=== PATIENT | male | born 1955 | race Caucasian/White ===

== ENCOUNTER → 2018-07-15 11:43 | Outpatient (CLI) | payer BC, SELFPAY ==
[2018-07-15 13:07] LABS: CREATININE 1.11 mg/dL (0.70-1.30); Glucose 108 mg/dL (70-100); Potassium 4.3 mmol/L (3.5-5.1)
[2018-07-15 15:51] LABS: Cholesterol 215 mg/dL (50-200); HDL Cholesterol 55 mg/dL (40-60); LDL CHOLESTEROL 144 mg/dL (<100); Triglyceride 95 mg/dL (30-150)
[2018-07-18 11:24] LABS: PSA, Screening 0.4 ng/ml (0-4.5)
[2018-07-18 11:45] LABS: Hepatitis C Ab w Rflx HCV PCR Negative (NEGAT)
== END ==
PROVIDERS: PCP Family Medicine; Visit Provider Family Medicine
DX: I10 Essential (primary) hypertension (principal); E11.9 Type 2 diabetes mellitus without complications; Z13.220 Encounter for screening for lipoid disorders; Z12.5 Encounter for screening for malignant neoplasm of prostate; Z11.59 Encounter for screening for other viral diseases
CPT/HCPCS: 36415; 80061; 82947; 83721; 84153; 86803; 82565; 84132

== ENCOUNTER 2019-07-28 02:43 | Outpatient (CLI) | payer BC, SELFPAY ==
[2019-07-28 12:48] LABS: Hemoglobin A1C 6.3 % (4.5-6.2)
[2019-07-28 14:55] LABS: CREATININE 1.05 mg/dL (0.70-1.30); Calculated LDL 136 mg/dL; Cholesterol 205 mg/dL (50-200); HDL Cholesterol 56 mg/dL (40-60); Potassium 4.5 mmol/L (3.5-5.1); Triglyceride 66 mg/dL (30-150)
== END 2019-07-28 03:03 ==
PROVIDERS: PCP Family Medicine; Visit Provider Family Medicine
DX: I10 Essential (primary) hypertension (principal); E74.39 Other disorders of intestinal carbohydrate absorption
CPT/HCPCS: 36415; 80061; 82565; 83036; 84132

== ENCOUNTER 2020-07-26 10:09 | Outpatient (CLI) | payer BC, SELFPAY ==
[2020-07-26 13:37] LABS: ALT 33 U/L (16-63); AST 22 U/L (15-37); Albumin 3.7 g/dL (3.4-5.0); Alkaline Phosphatase 76 U/L (46-116); Bilirubin, Direct 0.19 mg/dL (0.00-0.20); Bilirubin, Total 0.7 mg/dL (0.2-1.0); CREATININE 1.19 mg/dL (0.70-1.30); Potassium 4.4 mmol/L (3.5-5.1); Total Protein 7.3 g/dL (6.4-8.2)
[2020-07-26 13:44] LABS: Hemoglobin A1C 6.3 % (<5.7)
[2020-07-26 14:44] LABS: Calculated LDL 143 mg/dL (<100); Cholesterol 217 mg/dL (<200); HDL Cholesterol 57 mg/dL (40-60); Triglyceride 89 mg/dL (<150)
== END 2020-07-26 10:29 ==
PROVIDERS: PCP Family Medicine; Visit Provider Family Medicine
DX: E78.5 Hyperlipidemia, unspecified (principal); I10 Essential (primary) hypertension; R73.9 Hyperglycemia, unspecified; G72.89 Other specified myopathies
CPT/HCPCS: 36415; 80061; 80076; 82565; 83036; 84132

== ENCOUNTER 2021-08-08 02:10 | Outpatient (CLI) | payer BC, SELFPAY ==
[2021-08-08 12:32] LABS: Hemoglobin A1C 6.3 % (<5.7)
[2021-08-08 12:54] LABS: Calculated LDL 125 mg/dL (<100); Cholesterol 204 mg/dL (<200); HDL Cholesterol 60 mg/dL (40-60); Triglyceride 96 mg/dL (<150)
[2021-08-08 13:09] LABS: Uric Acid 7.3 mg/dL (3.5-7.2)
== END 2021-08-08 02:11 | disposition home or self-care (01) ==
LOC: LOS 02:10
PROVIDERS: PCP Family Medicine; Visit Provider Family Medicine
DX: E11.9 Type 2 diabetes mellitus without complications (principal); E78.5 Hyperlipidemia, unspecified; M10.9 Gout, unspecified
CPT/HCPCS: 36415; 80061; 83036; 84550

== ENCOUNTER → 2022-04-17 13:40 | Outpatient (CLI) | payer BC, SELFPAY ==
--- NOTE | 2022-04-17 14:36 | DI.RAD_ITS ---
Exam(s) XR KNEE LT 3V AP,LAT,SABRA EXAM: XR KNEE LT 3V AP,LAT,SABRA CLINICAL HISTORY: left knee pain M25.562 CHRONIC PAIN G89.29. TECHNIQUE: 2D digital imaging was performed of the left knee. Three images were obtained. AP, late ral and PA tunnel views were obtained. COMPARISON: No exams were available for comparison FINDINGS: BONES: No acute fracture is present. No bony destructive lesion is seen. JOINTS: The knee is normally aligned. No joint effusion is seen. Mild degenerative changes are seen i n the femoral tibial joints with joint space narrowing and periarticular spurring. The findings are most marked in the medial femoral tibial joint. SOFT TISSUE: Atherosclerosis is present. IMPRESSION: Mild osteoarthritis. DATA REPOSITORY: RADIATION DOSE DELIVERED:
== END ==
PROVIDERS: PCP Family Medicine; Visit Provider Family Medicine
DX: M25.562 Pain in left knee (principal); G89.29 Other chronic pain; M17.12 Unilateral primary osteoarthritis, left knee
CPT/HCPCS: 73562

== ENCOUNTER 2022-08-14 01:17 | Outpatient (CLI) | payer BC, SELFPAY ==
[2022-08-14 12:40] LABS: CREATININE 1.2 mg/dL (0.70-1.30); Calculated LDL 114 mg/dL (<100); Cholesterol 196 mg/dL (<200); HDL Cholesterol 67 mg/dL (40-60); Potassium 4.5 mmol/L (3.5-5.1); Triglyceride 78 mg/dL (<150)
[2022-08-14 12:56] LABS: Uric Acid 7.5 mg/dL (3.5-7.2)
[2022-08-14 13:56] LABS: Hemoglobin A1C 6.2 % (<5.7)
== END 2022-08-14 01:18 | disposition home or self-care (01) ==
LOC: LOS 01:17
PROVIDERS: PCP Family Medicine; Visit Provider Family Medicine
DX: I10 Essential (primary) hypertension (principal); R73.9 Hyperglycemia, unspecified; M10.9 Gout, unspecified; E78.5 Hyperlipidemia, unspecified
CPT/HCPCS: 36415; 80061; 82565; 83036; 84132; 84550

== ENCOUNTER 2022-09-30 13:33 | Outpatient (CLI) | payer BC, SELFPAY ==
--- NOTE | 2022-09-30 06:00 | DI.RAD_ITS ---
Exam(s) XR PAIN CLINIC FLUORO JOINT IN EXAM: XR PAIN CLINIC FLUORO JOINT IN CLINICAL HISTORY: Dx: Osteoarthritis of the knee. TECHNIQUE: Fluoroscopy was provided for the referring physician for guidance with performing pain cl inic injection procedure. COMPARISON: No exams were available for comparison FINDINGS: Please see procedure note for details. Fluoro time: 44.9 seconds RADIATION DOSE DELIVERED: osmar Kebede=5.11 mGy
[2022-09-30 13:58] VITALS: BP 164/81; PULSE 71; RESP 20; TEMP 36.7; O2SAT 94
--- NOTE | 2022-09-30 14:53 | PDOC.PAIN ---
Date of service: 09/30/22 Time of Service: 14:53 Pain Clinic Procedure Note Procedure Note Procedure Note: LEFT GENICULAR NERVE BLOCK Date of Service: September 30, 2022 Patient: Henry Limon Provider: Michi Fontaine DO, MPH Pre-operative diagnosis: Knee pain Post-operative diagnosis: Same Pre-procedure pain: VAS= 8/10 COMMENTS: He was evaluated by Dr. Diane and was referred directly for this procedure. Henry Limon has been referred to the [facility] for LEFT genicular nerve block. Henry was interviewed and the medical record reviewed. There were no medical, pharmacologic, radiographic or other structural contraindications to attempting fluoroscopically guided LEFT genicular nerve block. Risks and potential side effects as well as potential benefit of the procedure were reviewed with Henry , and HIS voiced concerns were addressed. After I believed that the patient was completely informed, the printed consent form was signed. Standard time-out procedure was performed. Henry was placed in the supine position on the fluoroscopy table and automated blood pressure cuff and pulse oximeter applied. The skin entry points for approaching LEFT superolateral genicular nerve, the superomedial genicular nerve, the terminal branch of the nerve vastus intermedius and the inferomedial genicular was identified under the most advantageous fluoroscopic view and marked. Following thorough Chlorhexadine preparation of the skin and draping, 1% lidocaine infiltration of the skin entry point and subcutaneous tissues was accomplished using a 1.5 25G needle. Next, the 3.5 25G spinal needle was advanced to os at the location of the specific nerve root using fluoroscopic guidance. Next, 0.5 ml of 0.5% Bupivacaine was injected at each site. The needles were removed without difficulty. Henry's vital signs were stable throughout the procedure and were as recorded in the docflowsheet by the nursing staff. If given, dosages of intravenous drugs for anxiolysis and analgesia were documented in MAR. Follow up plans and appointments were discussed with the Henry . Post procedure instruction was given as documented in nursing documentation and having met discharge criteria, Henry was discharged from the [facility]. COMMENTS: No apparent complications. Post-procedure pain: VAS = 0/10. The patient will keep track of her LEFT knee pain over the next four hours. If Henry has sufficient pain relief, Henry will be a candidate for radiofrequency ablation at the same nerves. Jonny WJ1, Early SJ, Attila JG, Shin JG, Kohler THOMAS, Park PH, Morataya JW. Radiofrequency treatment relieves chronic knee osteoarthritis pain: a double-blind randomized controlled trial. Pain. 2010;152(3):481-7. doi: 10.1016/j.pain.2010.09.029. Deloris S1, Kurtis ON2, Arnol Y3, ?zl?rowena P2, Peter U1, Antione ?m?rl? I. Which one is more effective for the clinical treatment of chronic pain in knee osteoarthritis: radiofrequency neurotomy of the genicular nerves or intra-articular injection? Int J Rheum Dis. 2016 Jul 10. F/U with our office by phone to let us know his 1-4 hour post-procedure pain VAS scores Michi Fontaine DO, MPH [facility]
[2022-09-30 14:57] VITALS: PULSE 77; O2SAT 95
[2022-09-30] MEDS: Omnipaque 240 MG/ML 50 ML BTL IJ (15:02)
[2022-09-30] MEDS: Bupivacaine 0.5% Pres-Free 10 ML VIAL IJ (15:02)
== END 2022-09-30 13:34 | disposition home or self-care (01) ==
LOC: PC 13:33
PROVIDERS: PCP Family Medicine; Visit Provider Preventive Medicine Occupational Medicine
DX: M25.562 Pain in left knee (principal)
CPT/HCPCS: 64454; 77002; Q9967

== ENCOUNTER 2022-11-02 13:07 | Emergency (ER) | payer OTHER, BC, SELFPAY ==
[2022-11-02 13:12] VITALS: BP 154/82; PULSE 87; RESP 18; TEMP 36.6; O2SAT 96
--- NOTE | 2022-11-02 13:15 | DI.RAD_ITS ---
Exam(s) XR TIB/FIB RT EXAM: XR TIB/FIB RT CLINICAL HISTORY: pain, injury. TECHNIQUE: 2D digital imaging was performed. Two views. COMPARISON: No exams were available for comparison FINDINGS: BONES: There is a comminuted mildly displaced fracture of the mid fibula. There is a fracture seen e xtending transversely through the medial malleolus with a few millimeters of separation. There is wi dening of the medial ankle mortise.. No bony destructive lesion is seen. Visualized portion of knee and ankle joints are unremarkable. SOFT TISSUE: A posterior splint is in place. There is significant soft tissue edema. IMPRESSION: Mid fibular fracture. Medial malleolar fracture with mortise disruption. DATA REPOSITORY: RADIATION DOSE DELIVERED:
[2022-11-02 13:44] LABS: Abs Immature Grans 0.04 10^3/uL (0.0-0.06); Absolute Basophil Count 0.02 10^3/uL (0.0-0.2); Absolute Eosinophil Count 0.19 10^3/uL (0.0-0.7); Absolute Lymphocyte Count 0.77 10^3/uL (1.2-3.4); Absolute Monocyte Count 0.21 10^3/uL (0.1-0.8); Absolute Neutrophil Count 4.97 10^3/uL (1.2-6.7); Basophils % 0.3; Eosinophils % 3.1; HCT 44.4 % (40.0-50.0); HGB 14.3 g/dL (13.5-17.5); Immature Grans % 0.6; Lymphocytes % 12.4; MCHC 32.2 % (32.0-36.0); MCV 96 fL (80-95); Monocytes % 3.4; Neutrophils % 80.2; Platelet Count 272 10^3/uL (130-400); RBC 4.62 10^6/uL (4.36-5.78); RDW 13.1 % (11.8-14.1); RDW-SD 46.5 fL
[2022-11-02 13:47] LABS: Source Nasal/Nares
[2022-11-02 14:01] LABS: ALT 28 U/L (16-63); AST 20 U/L (15-37); Albumin 3.1 g/dL (3.4-5.0); Alkaline Phosphatase 65 U/L (46-116); Anion Gap 8.2 mmol/L (3-11); BUN 13 mg/dL (7-18); Bilirubin, Total 0.5 mg/dL (0.2-1.0); CO2 25.8 mmol/L (21.0-32.0); CREATININE 1.1 mg/dL (0.70-1.30); Calcium 8.1 mg/dL (8.5-10.1); Chloride 104 mmol/L (98-107); Estimated GFR 74.04 (mL/min/1.73m2); Glucose 164 mg/dL (74-106); Potassium 4.5 mmol/L (3.5-5.1); Sodium 138 mmol/L (136-145); Total Protein 7.4 g/dL (6.4-8.2)
[2022-11-02 14:28] LABS: COVID-19 PCR Negative (Negative)
--- NOTE | 2022-11-02 15:47 | W.ED.GENAD ---
Discharge Plan Disposition Patient Disposition: Home Condition: Stable Discharge Details Clinical Impression: Fracture of right tibia and fibula, Abrasion of right leg Primary Care Provider: Les Carvajal ED Provider: Leon Sharif Home Meds and New Rx's Prescriptions: Continued Spiriva Respimat 2.5 mcg/actuation mist 2 inh inhalation QAM Qty: 4 2RF amlodipine 10 mg tablet 10 mg PO DAILY Qty: 90 3RF albuterol sulfate 90 mcg/actuation HFA aerosol inhaler 2 inh inhalation Q6H PRN (Reason: shortness of breath or wheezing) Qty: 18 4RF lisinopril 30 mg tablet 30 mg PO DAILY Qty: 90 3RF Rx Instructions: increased dose/ take one tablet daily acetaminophen [Acetaminophen Extra Strength] 500 MG tablet 1,000 mg PO Q6H PRN PRN (Reason: Pain) Qty: 100 0RF Rx Instructions: max 3 x day No Action metoprolol succinate 25 mg tablet extended release 24 hr 25 mg PO DAILY Qty: 90 3RF naproxen 250 mg tablet 250 - 500 mg PO BID PRNQty: 40 0RF Rx Instructions: take with a meal oxycodone 5 mg tablet 5 - 10 mg PO Q4H MDD 30 mg PRN (Reason: moderate to severe pain) Qty: 18 0RF folic acid 1 mg Tablet 1 mg PO QAM Qty: 30 0RF hydroxyzine HCl 25 mg Tablet 25 mg PO TID PRN PRNQty: 30 0RF thiamine mononitrate (vit B1) [Vitamin B-1 (mononitrate)] 100 mg Tablet 100 mg PO QAM Qty: 30 0RF Discharge Instructions Instructions: Oxycodone, Rapid Release (By mouth), Leg Fracture (ED), Abrasion (ED) Additional Instructions: Keep splint intact and use crutches. No weightbearing on right leg. Please take ibuprofen over the counter. Take 600mg by mouth every 6 hours as needed for pain. Please take acetaminophen (tylenol) as prescribed for pain. Take oxycodone only for severe pain at does not respond to ibuprofen and Tylenol. Please follow-up with orthopedics. Call tomorrow to schedule appointment. Return to the emergency department immediately for any worsening or new concerning symptoms. Referrals: [facility] [Provider Group] Les Carvajal MD [Primary Care Provider] - Discharge Data Discharge Date/Time-TO BE ENTERED AT DEPARTURE: 11/02/22 17:37 Medical Decision Making 67yo m here with right leg injury after right leg was pinned between a heavy log and machinery. Patient is neurovascular intact distally. He has some mild swelling of the mid to distal lower extremity. Dilaudid 1 mg IV given for pain. X-ray of the tib-fib was interpreted by radiology: Displaced midshaft fibular fracture with distal tibial fracture, some talar displacement. I consulted Dr. Diane, discussed ED presentation course, he evaluated the patient and recommends posterior slab splint with reduction of the talar dislocation. Pain did initially improve and then a repeat dose of Dilaudid and Toradol was given for return of discomfort. Talus was reduced and posterior splint applied. Post reduction x-ray obtained. Alignment improved. Patient to be discharged nonweightbearing with crutches. Patient to follow-up with Dr. Diane. Sign Out No HPI General Mode of arrival: EMS. Date/Time Provider Initiated Documentation: 11/02/22 13:17. Limitations to Documentation: no limitations. Information obtained by: patient and EMS. HPI Narrative: 67-year-old male presents with chief complaint of patient notes he leg pain. Patient notes pinned his leg between a log and global account manager machine. Leg was pinned for approximately 30 seconds and removed with assistance from others. He notes he had to bear weight on the leg and it felt unstable. He has had pain since his injury which occurred just prior to arrival. Pain is moderate to severe. Worse with any attempted movement of the ankle and with ambulation. No associated numbness or tingling. No other injury. Related Data Home Medications Medication Instructions Recorded Confirmed acetaminophen 500 mg tablet 1,000 mg PO Q6H PRN PRN Pain #100 10/05/16 11/17/22 (Acetaminophen Extra Strength) tabs lisinopril 30 mg tablet 30 mg PO DAILY #90 tab-caps 06/15/22 11/17/22 tiotropium bromide 2.5 2 inh inhalation QAM #4 grams 08/12/22 11/17/22 mcg/actuation mist for inhalation (Spiriva Respimat) albuterol sulfate 90 mcg/actuation 2 inh inhalation Q6H PRN shortness 10/30/22 11/17/22 aerosol inhaler of breath or wheezing #18 grams amlodipine 10 mg tablet 10 mg PO DAILY #90 tabs 10/30/22 11/17/22 naproxen 250 mg tablet 250 - 500 mg PO BID PRN #40 tabs 11/05/22 11/17/22 oxycodone 5 mg tablet 5 - 10 mg PO Q4H PRN moderate to 11/05/22 11/17/22 severe pain #18 tabs folic acid 1 mg tablet 1 mg PO QAM #30 tabs 11/09/22 11/17/22 hydroxyzine HCl 25 mg tablet 25 mg PO TID PRN PRN #30 tabs 11/09/22 11/17/22 thiamine mononitrate (vit B1) 100 100 mg PO QAM #30 tabs 11/09/22 11/17/22 mg tablet (Vitamin B-1 (mononitrate)) metoprolol succinate 25 mg 25 mg PO DAILY #90 tabs 11/10/22 11/17/22 tablet,extended release 24 hr Previous Rx's Medication Instructions Recorded acetaminophen 500 mg tablet 1,000 mg PO Q6H PRN PRN Pain #100 10/05/16 (Acetaminophen Extra Strength) tabs lisinopril 30 mg tablet 30 mg PO DAILY #90 tab-caps 06/15/22 tiotropium bromide 2.5 2 inh inhalation QAM #4 grams 08/12/22 mcg/actuation mist for inhalation (Spiriva Respimat) albuterol sulfate 90 mcg/actuation 2 inh inhalation Q6H PRN shortness 10/30/22 aerosol inhaler of breath or wheezing #18 grams amlodipine 10 mg tablet 10 mg PO DAILY #90 tabs 10/30/22 naproxen 250 mg tablet 250 - 500 mg PO BID PRN #40 tabs 11/05/22 oxycodone 5 mg tablet 5 - 10 mg PO Q4H PRN moderate to 11/05/22 severe pain #18 tabs folic acid 1 mg tablet 1 mg PO QAM #30 tabs 11/09/22 hydroxyzine HCl 25 mg tablet 25 mg PO TID PRN PRN #30 tabs 11/09/22 thiamine mononitrate (vit B1) 100 100 mg PO QAM #30 tabs 11/09/22 mg tablet (Vitamin B-1 (mononitrate)) metoprolol succinate 25 mg 25 mg PO DAILY #90 tabs 11/10/22 tablet,extended release 24 hr Allergies Allergy/AdvReac Type Severity Reaction Status Date / Time No Known Allergies Allergy Verified 11/17/22 15:14 General Stated Complaint: Orthopedic JESSEE: 3 Review of Systems Cardiovascular Cardiovascular: Denies chest pain and Denies dyspnea Respiratory Respiratory: Denies dyspnea Gastrointestinal Gastrointestinal: Denies abdominal pain Musculoskeletal Musculoskeletal: Reports as per HPI and Denies tingling Neurologic Neurologic: Denies tingling PFSH All Active Problems (Updated 11/10/22 @ 00:05 by KENTRELL KO) Displaced trimalleolar fracture of right ankle (Acute 11/02/22) Abrasion of right leg (Acute) Former cigarette smoker (Chronic) ~80 pack/yr hx. Annual LDCT COPD (chronic obstructive pulmonary disease) (Chronic) Osteoarthritis of left knee (Acute) Morbid obesity with BMI of 45.0-49.9, adult (Acute) Poor dentition (Chronic 06/25/17) Chronic pain of left knee (Chronic 06/25/17) Well adult (Chronic) check labs wt loss encouraged shingrix colon screening encouraged Alcohol use (Chronic) 3-4 beers / night Hypertension (Chronic) Medical History (Updated 11/10/22 @ 00:05 by KENTRELL KO) Gout attack Hematuria, gross Rosacea (06/06/14) Family History Mother No problems noted. Father , age 80 Heart disease Sister No problems noted. Maternal Grandfather , age 85 Heart disease Paternal Grandfather , age 62 Heart disease Maternal Grandmother , 66 Heart disease Stroke Paternal Grandmother , 90 Cancer Sister No problems noted. Sister No problems noted. Brother No problems noted. Brother , 59 Colon cancer Son No problems noted. Son No problems noted. Social History Smoking/Tobacco Use Status: Former Tobacco Use tobacco type: cigarettes Quit Date: 11/29/09 Tobacco: How many years used: 30 Second Hand Exposure: Yes Smoking risk assessment performed?: Yes Alcohol Intake: current Alcohol Intake frequency: a few times a week Alcohol type: beer Drug use: Never Substance use type: does not use Caregiver/Support person: No Household members: children Housing: house Do you need help understanding health information?: Never Pets and animals: No Sexually active: No Do you think of yourself as: straight/heterosexual Current gender identity: male What is your relationship status?: How often do you talk on the phone with friends or family?: three or more times per week How often do you get together with friends or relatives?: three or more times per week How often do you attend presybeterian or anglican services?: decline to answer Do you belong to any clubs or organized social groups?: no Panel score (0-1 are the most socially isolated patients): 1 What type of physical activity do you participate in: walking Duration: 60-90 minutes/day Frequency: daily Cathie/Lutheran: No preference Special cathie needs: No Seatbelt use: sometimes Helmet use: No Drive 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 Do you feel safe at home: Yes Do you feel safe in your relationship?: Yes Exam Const General: cooperative HENMT Head: atraumatic Mouth: moist mucous membranes Resp Auscultation: clear to auscultation bilaterally, no rales, no rhonchi and no wheezes Cardio Rate: regular rate and not tachycardic Rhythm: regular rhythm GI Palpation: soft, not firm, no guarding, no masses, not rigid and nontender Skin General skin exam: no rashes or lesions noted Neuro General: patient alert, patient awake and tone normal Extrem General: no edema Right lower extremity: lower leg Details: other (Swelling mid to distal lower leg, tender mid lateral lower leg, superficial abrasion posterior calf); no lacerations, ankle Details: tenderness Location: of the medial malleolus and swelling and foot Details: vascular exam Details: dorsalis pedis pulse present and posterior tibial pulse present and motor-sensory exam Details: light-touch normal Course Vital Signs Vital signs: Vital Signs Temperature 36.6 C 11/02/22 13:12 Pulse 87 11/02/22 13:12 Respiratory Rate 18 11/02/22 13:12 Blood Pressure 154/82 H 11/02/22 13:12 Pulse Oximetry 96 11/02/22 13:12 Temperature 36.6 C 11/02/22 13:12 Temperature Source Tympanic 11/02/22 13:12 Pulse 87 11/02/22 13:12 Respiratory Rate 18 11/02/22 13:12 Respiratory Effort 11/02/22 13:16 Blood Pressure 154/82 H 11/02/22 13:12 Blood Pressure Position Supine 11/02/22 13:12 Pulse Oximetry 96 11/02/22 13:12 Oxygen Delivery Method Room Air 11/02/22 13:12 Oxygen Flow Rate 0 11/02/22 13:12 Pain Level 5 11/02/22 13:12 Lab/Test Results Lab/Test Results: Laboratory Tests Range/Units 11/02/22 11/02/22 11/02/22 13:35 13:35 13:35 WBC (4.4-10.8) 10^3/uL 6.20 RBC (4.36-5.78) 10^6/uL 4.62 Hgb (13.5-17.5) g/dL 14.3 Hct (40.0-50.0) % 44.4 MCV (80-95) fL 96 H MCH (27.0-33.0) pg 31.0 MCHC (32.0-36.0) % 32.2 RDW (11.8-14.1) % 13.1 Plt Count (130-400) 10^3/uL 272 MPV (8.0-11.0) fL 9.0 Immature Gran % 0.6 Neutrophils % 80.2 Lymphocytes % 12.4 Monocytes % 3.4 Eosinophils % 3.1 Basophils % 0.3 Nucleated RBC % (0.0-0.3) % 0.0 Absolute Neutrophils (1.2-6.7) 10^3/uL 4.97 Absolute Lymphocytes (1.2-3.4) 10^3/uL 0.77 L Absolute Monocytes (0.1-0.8) 10^3/uL 0.21 Absolute Eosinophils (0.0-0.7) 10^3/uL 0.19 Absolute Basophils (0.0-0.2) 10^3/uL 0.02 Sodium (136-145) mmol/L 138 Potassium (3.5-5.1) mmol/L 4.5 Chloride (98-107) mmol/L 104 Carbon Dioxide (21.0-32.0) mmol/L 25.8 Anion Gap (3-11) mmol/L 8.2 BUN (7-18) mg/dL 13 Creatinine (0.70-1.30) mg/dL 1.1 Est GFR (CKD-EPI 2020) (mL/min/1.73m2) 74.04 Glucose (74-106) mg/dL 164 H Calcium (8.5-10.1) mg/dL 8.1 L Total Bilirubin (0.2-1.0) mg/dL 0.5 AST (15-37) U/L 20 ALT (16-63) U/L 28 Alkaline Phosphatase (46-116) U/L 65 Total Protein (6.4-8.2) g/dL 7.4 Albumin (3.4-5.0) g/dL 3.1 L COVID-19 Source SARS-CoV-2 (PCR) (Negative) Patient ABO/Rh A Positive Antibody Screen NEGATIVE Range/Units 11/02/22 13:41 WBC (4.4-10.8) 10^3/uL RBC (4.36-5.78) 10^6/uL Hgb (13.5-17.5) g/dL Hct (40.0-50.0) % MCV (80-95) fL MCH (27.0-33.0) pg MCHC (32.0-36.0) % RDW (11.8-14.1) % Plt Count (130-400) 10^3/uL MPV (8.0-11.0) fL Immature Gran % Neutrophils % Lymphocytes % Monocytes % Eosinophils % Basophils % Nucleated RBC % (0.0-0.3) % Absolute Neutrophils (1.2-6.7) 10^3/uL Absolute Lymphocytes (1.2-3.4) 10^3/uL Absolute Monocytes (0.1-0.8) 10^3/uL Absolute Eosinophils (0.0-0.7) 10^3/uL Absolute Basophils (0.0-0.2) 10^3/uL Sodium (136-145) mmol/L Potassium (3.5-5.1) mmol/L Chloride (98-107) mmol/L Carbon Dioxide (21.0-32.0) mmol/L Anion Gap (3-11) mmol/L BUN (7-18) mg/dL Creatinine (0.70-1.30) mg/dL Est GFR (CKD-EPI 2020) (mL/min/1.73m2) Glucose (74-106) mg/dL Calcium (8.5-10.1) mg/dL Total Bilirubin (0.2-1.0) mg/dL AST (15-37) U/L ALT (16-63) U/L Alkaline Phosphatase (46-116) U/L Total Protein (6.4-8.2) g/dL Albumin (3.4-5.0) g/dL COVID-19 Source Nasal/Nares SARS-CoV-2 (PCR) (Negative) Negative Patient ABO/Rh Antibody Screen PAWSS Have you Been Recently Intoxicated or Drunk Within the Last 30 days?: No Have you Ever Experienced Previous Episodes of Alcohol Withdrawal?: No Have you ever Experienced Withdrawal Seizures?: No Have you ever Experienced Delirium Tremens(DT)s?: No Have you ever undergone Alcohol Rehabilitation Treatment (i.e, inpt ot outpatient treatment programs)?: No Have you ever Experienced Blackouts?: No Have you ever Combined Alcohol with other Downers within the last 90 days?: No Have you ever Combined Alcohol with any other Substance of Abuse during the last 90 days?: No Positive Blood Alcohol level on Presentation? [PCS.BAL]: No Evidence of Increased Autonomic Activity (i.e. HR>120, tremor, sweating, agitation, nausea)?: No Result: 0
--- NOTE | 2022-11-02 16:48 | DI.RAD_ITS ---
Exam(s) XR ANKLE RT COMPLETE EXAM: XR ANKLE RT COMPLETE CLINICAL HISTORY: fracture, post reduction. TECHNIQUE: 2D digital imaging was performed of the right ankle. Three images were obtained. AP, la teral and oblique views were obtained. COMPARISON: CR XR TIB/FIB RT from 11/02/2022 FINDINGS: BONES: The acute comminuted fracture of the mid right fibula is partially seen on the edge of the carly m. It is better appreciated on the x-ray of the leg from earlier in the day. There is also seen an acute fracture through the medial malleolus. There has been no change in alignment of the fracture. There is widening of the medial ankle mortise which is unchanged. No bony destructive lesion is see n. The small plantar calcaneal spur. JOINTS: There is widening of the ankle mortise medially. SOFT TISSUE: There is soft tissue swelling of the ankle. The patient's ankle is in a splint. IMPRESSION: Stable alignment of the medial malleolar fracture and widening of the ankle mortise. DATA REPOSITORY: RADIATION DOSE DELIVERED:
--- NOTE | 2022-11-02 17:45 | DI.VRAD_ITS ---
PROCEDURE INFORMATION: Exam: XR Right Ankle Exam date and time: 11/02/2022 4:30 PM Age: 67 years old Clinical indication: Other: Fracture post reduction TECHNIQUE: Imaging protocol: Radiologic exam of the Right ankle. Views: 3 or more views. COMPARISON: CR XR TIB/FIB RT 11/02/2022 2:25 PM FINDINGS: Tubes, catheters and devices: Status post splint placement. Bones/joints: Displaced fracture of the medial malleolus. Widening of the medial ankle mortise consistent with disruption. Partially visualized comminuted fracture of the fibula. Fracture alignment appears unchanged. Soft tissues: Soft tissue swelling and edema. IMPRESSION: Status post splint placement with unchanged alignment of displaced medial malleolar fracture and ankle mortise widening. Dictated and Authenticated by: Christiano Levine MD. Ordering:ALETHA Quintero MD
--- NOTE | 2022-11-03 12:26 | W.ORTHOCONSU ---
Date of service: 11/02/22 Time of Service: 15:40 History of Present Illness History of Present Illness Chief Complaint: Right Leg Pain Narrative: Henry is a 67-year-old active male who was working in the [employer] when a log rolled up onto his right leg and pinned him between the log and a log splitter. He had immediate pain and deformity. He is brought in by EMS. He had pain and swelling about the right leg. X-rays were performed and revealed a midshaft fibula fracture with ankle fracture as well, posterior and medial malleolus. These represent a Maisonneuve equivalent. He denies any numbness or tingling. He does have pain within the leg. He denies head trauma. He has had issues with knee pain in the past. Consults Consult date: 11/02/22 Requesting physician: Leon Sharif Consult Reason Right ANkle Fracture-Subluxation Assessment and Plan Assessment and plan (1) Closed Maisonneuve fracture of right lower extremity: Status: Acute Assessment and plan: Henry is a 67-year-old who has an ankle fracture subluxation, trimalleolar equivalent. There is some swelling about the leg by do not see any signs of compartment syndrome. I have little concern for that given the status of the leg at this point. It is imperative that he keep it elevated. He should be nonweightbearing. Gentle reduction should also be performed this was discussed with Dr. Sharif. He will complete the reduction and placed him into a posterior slab splint. He should keep the leg elevated at home and we will call him for likely surgical fixation in the next 5 to 7 days. Review of Systems All systems reviewed & are unremarkable except as noted in HPI and below PFSH All Active Problems Closed Maisonneuve fracture of right lower extremity (Acute 11/02/22) Abrasion of right leg (Acute) Former cigarette smoker (Chronic) ~80 pack/yr hx. Annual LDCT COPD (chronic obstructive pulmonary disease) (Chronic) Osteoarthritis of left knee (Acute) Morbid obesity with BMI of 45.0-49.9, adult (Acute) Poor dentition (Chronic 06/25/17) Chronic pain of left knee (Chronic 06/25/17) Well adult (Chronic) check labs wt loss encouraged shingrix colon screening encouraged Alcohol use (Chronic) 3-4 beers / night Hypertension (Chronic) Medical History Gout attack Hematuria, gross Rosacea (06/06/14) Family History Mother No problems noted. Father , age 80 Heart disease Sister No problems noted. Maternal Grandfather , age 85 Heart disease Paternal Grandfather , age 62 Heart disease Maternal Grandmother , 66 Heart disease Stroke Paternal Grandmother , 90 Cancer Sister No problems noted. Sister No problems noted. Brother No problems noted. Brother , 59 Colon cancer Son No problems noted. Son No problems noted. Social History Smoking/Tobacco Use Status: Former Tobacco Use tobacco type: cigarettes Quit Date: 11/29/09 Tobacco: How many years used: 30 Second Hand Exposure: Yes Smoking risk assessment performed?: Yes Alcohol Intake: current Alcohol Intake frequency: a few times a week Alcohol type: beer Drug use: Never Substance use type: does not use Caregiver/Support person: No Household members: children Housing: house Do you need help understanding health information?: Never Pets and animals: No Sexually active: No Do you think of yourself as: straight/heterosexual Current gender identity: male What is your relationship status?: How often do you talk on the phone with friends or family?: three or more times per week How often do you get together with friends or relatives?: three or more times per week How often do you attend religious or hoahaoism services?: decline to answer Do you belong to any clubs or organized social groups?: no Panel score (0-1 are the most socially isolated patients): 1 What type of physical activity do you participate in: walking Duration: 60-90 minutes/day Frequency: daily Cathie/Holiness: No preference Special cathie needs: No Seatbelt use: sometimes Helmet use: No Drive intox or ride w/intox skidder driver: No Do you feel safe at home: Yes Do you feel safe in your relationship?: Yes Exam Narrative Exam Narrative: Evaluation in the hospital stretcher shows he is in no acute distress. Alert and x3. Head is normocephalic and atraumatic. Evaluation of the right lower extremity shows notable swelling about the midportion of the leg down to the ankle. However, the skin has wrinkles. There is no defect in the skin. There is pain to palpation about the ankle and the fibula. Sensation intact light touch over the deep and superficial peroneal nerve and tibial nerve. Palpable DP PT pulse. Passive flexion extension of the great toe does not increase any pain. Results Last Vital Signs Temp 36.6 C 11/02/22 13:12 Pulse 87 11/02/22 13:12 Resp 18 11/02/22 13:12 BP 154/82 H 11/02/22 13:12 Pulse Ox 96 11/02/22 13:12 Labs Result diagrams: 11/02/22 13:35 11/02/22 13:35 Labs: Laboratory Results - last 24 hr 11/02/22 11/02/22 11/02/22 13:35 13:35 13:35 WBC 6.20 RBC 4.62 Hgb 14.3 Hct 44.4 MCV 96 H MCH 31.0 MCHC 32.2 RDW 13.1 Plt Count 272 MPV 9.0 Immature Gran % 0.6 Neutrophils % 80.2 Lymphocytes % 12.4 Monocytes % 3.4 Eosinophils % 3.1 Basophils % 0.3 Nucleated RBC % 0.0 Absolute Neutrophils 4.97 Absolute Lymphocytes 0.77 L Absolute Monocytes 0.21 Absolute Eosinophils 0.19 Absolute Basophils 0.02 Sodium 138 Potassium 4.5 Chloride 104 Carbon Dioxide 25.8 Anion Gap 8.2 BUN 13 Creatinine 1.1 Est GFR (CKD-EPI 2020) 74.04 Glucose 164 H Calcium 8.1 L Total Bilirubin 0.5 AST 20 ALT 28 Alkaline Phosphatase 65 Total Protein 7.4 Albumin 3.1 L COVID-19 Source SARS-CoV-2 (PCR) Patient ABO/Rh A Positive Antibody Screen NEGATIVE 11/02/22 13:41 WBC RBC Hgb Hct MCV MCH MCHC RDW Plt Count MPV Immature Gran % Neutrophils % Lymphocytes % Monocytes % Eosinophils % Basophils % Nucleated RBC % Absolute Neutrophils Absolute Lymphocytes Absolute Monocytes Absolute Eosinophils Absolute Basophils Sodium Potassium Chloride Carbon Dioxide Anion Gap BUN Creatinine Est GFR (CKD-EPI 2020) Glucose Calcium Total Bilirubin AST ALT Alkaline Phosphatase Total Protein Albumin COVID-19 Source Nasal/Nares SARS-CoV-2 (PCR) Negative Patient ABO/Rh Antibody Screen Imaging Imaging Studies: X-ray of the right leg and ankle shows a medial and posterior malleolar fractures as well as a midshaft fibula fracture, representing a Maisonneuve fracture. No fracture the proximal tibia or the knee. No other suspicious lesions.
--- NOTE | 2022-11-07 10:10 | INDS_ITS ---
Date of service: 11/07/22 PT Notes Visit Reasons: Darryl Physical Therapy Inpatient Discharge Summary Date: 11/06/2022 Dates of Service: 11/06/2022 only This is a clinical summary of care provided for the duration of dates listed above. No charge was made in the completion of this documentation. Referring Doctor:? Milo Diane MD PT Orders: PT CONSULT: Protected weight bearing as best as possible with assistive device Precautions: Fall. Standard. Protected weight bearing on R LE. Patient Profile/Admitting Diagnosis:? Henry converts to swing bed level for continued rpost-op rehabilitation prior to discharge to home tentively on Wednesday.? Henry is a 67-year-old male patient who presented to the ED on 11/02/2022 with diagnosis of displaced fracture of the mid shaft of the R fibula with distal tibial fracture with some talar displacement.? On 11/03/2022,? a posterior slab splint was placed for the patient at the ED after a closed reduction of the talar dislocation was made to stabilize the fracture while his Pneumonia cleared.? He is S/P ORIF of R displaced trimallleolar fracture with open treatment syndesmosis disruption on postoperative day 2. PMHX: All Active Problems?(Updated 11/02/22 @ 16:26 by Leon Sharif MD) Fracture of right tibia and fibula (Acute) Abrasion of right leg (Acute) Former cigarette smoker (Chronic) ~80 pack/yr hx. Annual LDCT COPD (chronic obstructive pulmonary disease) (Chronic) Osteoarthritis of left knee (Acute) Morbid obesity with BMI of 45.0-49.9, adult (Acute) Poor dentition (Chronic 06/25/17) Chronic pain of left knee (Chronic 06/25/17) Well adult (Chronic) check labs wt loss encouraged shingrix colon screening encouragedAlcohol use (Chronic) 3-4 beers / night Hypertension (Chronic) Medical History? Gout attack Hematuria, gross Rosacea (06/06/14) Social History/Home Situation: Son lives with patient in a private home with 5-6 steps to enter without rails.? He works for the town of [place].? Equipment Owned/DME: Bilateral axillary crutches Subjective: Confidence level increasing but still with prevailing anxiety over going home.? Agreeable to having home health PT and OT for continued rehab.? Reports 3/10 pain in the R leg after ambulation activity that subsided with rest. Objective: General Observation: Seated on chair.? BRENDA wraps to R LE over fixed R LE.? High BMI.? IV access through R UE. Mental Status: Alert and oriented as to person, place, time, and purpose. Able to pay attention, focus, and respond appropriately. Pain: 3/10 Vital Signs: WNL as closely monitored by nursing staff ROM: Right Lower Extremity: Hip flexion WFL. Hip abduction WFL. Knee flexion WFL. Ankle dorsiflexion NT. Ankle plantarflexion NT. Left Lower Extremity: Hip flexion WFL. Hip abduction WFL. Knee flexion WFL. Ankle dorsiflexion WFL. Ankle plantarflexion WFL. Strength: Right Lower Extremity: R hip 4-/5.? R knee extensors 4-/5. R knee flexors NT. Left Lower Extremity: Hip flexors 5/5. Hip abductors 5/5. Knee flexors 5/5. Knee extensors 5/5. Ankle dorsiflexors 5/5. Ankle plantarflexors 5/5. Bed Mobility/Transfers: Sit to stand with stand by assist using bariatric FWW Stand to sit?with stand by assist using bariatric FWW Bed to reclining chair?with stand by assist using bariatric FWW Gait: 50 feet using bariatric FWW with TDWB to minimal weight bearing on the R LE with report of 3/10 pain in the side of the R leg that subsided with rest.? Step-to gait pattern sometimes but mostly TDWB as patient appears still anxious about putting R feet down.? THERA EX: Gluteal sets x 10 Quadrcieps sets x 10 Seated hip abdcution x 10 Heel slides x 10 Toe wiggles x 10 Balance: Static Sitting: Normal Dynamic Sitting: Normal Static Standing: Poor Dynamic Standing: Poor Special Tests: Mobility Limitations Standardized Measure [facility] 6 clicks Basic Mobility Inpatient Short Form: Raw Score: 20? CMS Score: 36% deficit? ? ? Informed Consent/Education:? Patient was instructed in purpose of PT consult and plan of care. Agreeable to proceed with established PT POC to achieve personal goals. Assessment: Patient to be re-evalauted under swing bed level 1 of care. Patient will benefit best with HH PT/OT at home for training in the home environment.? He is able to cover about the same distance as he would at home using the bariatric FWW.? Alternatively,? he will have a wheelchair that he may use to negotiate the distance from reclining chair to the bathroom if pain becomes an issue at home.? Henry is a 67-year-old male patient who presented to the ED on 11/02/2022 with diagnosis of displaced fracture of the midshaft of the R fibula with distal tibial fracture with some talar displacement.? On 11/03/2022,? a posterior slab splint was placed for the patient at the ED after a closed reduction of the talar dislocation was made to stabilize the fracture while his Pneumonia cleared.? He is S/P ORIF of R displaced trimallleolar fracture with open treatment syndesmosis disruption on postoperative day 2.? Training for pericare and undergarment management pre and post voiding have been done with patient. Patient presents with clinical signs and symptoms consistent with current/admitting diagnoses that have resulted to mobility limitations, gait instability, generalized weakness, and overall ADL decline as demonstrated by the following impairment level findings: 1.? Decreased strength to R leg and foot major muscle groups 2.? Impaired standing balance 3.? Impaired activity tolerance 4.? Limitation of joint range of motion in R LE Impairments are contributing to the following functional limitations: 1.? Decline in bed mobility skills 2.? Decline in transfer skills 3.? Increased completion time for mobility ADL performance Goals: Goals X1 week 1. Sit-Stand from reclining chair independent using bariatric walker NOT MET, CONITNUE UNDER SB 1 LEVEL OF CARE 2. Stand-Sit onto reclining chair independent using bariatric walker NOT MET, CONITNUE UNDER SB 1 LEVEL OF CARE 3. Bed-Chair independent using bariatric walker NOT MET, CONITNUE UNDER SB 1 LEVEL OF CARE 4. Chair-Bed independent using bariatric walker NOT MET, CONITNUE UNDER SB 1 LEVEL OF CARE 5.? Level service ambulation of 50 feet indepedent using bariatric walker NOT MET, CONITNUE UNDER SB 1 LEVEL OF CARE Plan of Care/Treatment Plan: 1-2x/day, 7 days/week x 1 week. Plan of care has been reviewed with the SHOTBLAST EQUIPMENT OPERATOR providing the service under Physical Therapy direction. Initiate Physical Therapy intervention for pain management as needed, strengthening, bed mobility, transfers, gait, stairs, balance training, and use of assistive device. DISCHARGE RECOMMENDATIONS: [] ? Home with no services [] [X] ? Home with services .? HOme when medically cleared by orthopedic surgeon.? Patient will benefit from home health PT services in order to progress mobility level using least restrictive assistive ambulatory device, assess home safety, identify additional equipment needs, and establish a functional maintenance program that will increase ability of patient to remain at home. [] ? Home with outpatient PT [] [] ? SNF for continued rehabilitation [] [] ? [facility] [] [] ? SNF versus LTC based on ability to participate and progress [] [X]? Equipment needs: 1) regular wheelchair to negotiate hallway from reclining chair to bathroom if pain level increases ? 2) bedside commode to maximize toileting independence and reduce fall risk if pain level increases ? 3)? shower chair to maximize independence with bathing tasks while reducing fall risk ? 4) bariatric walker to maixmize mobility independence and reduce fall risk TREATMENT CODE/TIME: NC Thank you for the opportunity to participate in the care of this patient. Leeann Hardy PT, DPT, CLT [facility] [place], [place]
== END 2022-11-02 17:37 | disposition home or self-care (01) ==
PROVIDERS: Emergency Provider Student in an Organized Health Care Education/Training Program; PCP Family Medicine
DX: S82.301A Unspecified fracture of lower end of right tibia, initial encounter for closed fracture (principal); S82.831A Other fracture of upper and lower end of right fibula, initial encounter for closed fracture; S93.04XA Dislocation of right ankle joint, initial encounter; Z20.822 Contact with and (suspected) exposure to COVID-19; W31.89XA Contact with other specified machinery, initial encounter
CPT/HCPCS: 27840; 80053; 86850; 86900; 86901; 87635; 90471; 96374; 96375; 96376; 99284; 73590; 73610; 85025

== ENCOUNTER 2022-11-03 11:53 | Inpatient (IN) | payer OTHER, SELFPAY ==
--- NOTE | 2022-11-03 | DI.RAD_ITS ---
Exam(s) XR CHEST 2V PA LATERAL EXAM: XR CHEST 2V PA LATERAL CLINICAL HISTORY: ongoing cough TECHNIQUE: 2D digital imaging was performed of the chest. Two images were obtained. PA and lateral views were obtained. COMPARISON: No exams were available for comparison FINDINGS: MEDIASTINUM: Normal. HEART: Normal. PULMONARY VASCULATURE: Normal. LUNGS: Clear. PLEURAL SPACE: No pleural effusion or pneumothorax. BONE:Within normal limits for the patient's age. OTHER FINDINGS:Normal. IMPRESSION: No acute pulmonary findings. DATA REPOSITORY: RADIATION DOSE DELIVERED:
--- NOTE | 2022-11-03 | DI.RAD_ITS ---
Exam(s) XR ANKLE RT COMPLETE EXAM: XR ANKLE RT COMPLETE CLINICAL HISTORY: s/p R ankle fracture with repeat fall. TECHNIQUE: 2D digital imaging was performed of the right ankle. Three images were obtained. AP, la teral and oblique views were obtained. COMPARISON: CR,XR XR ANKLE RT COMPLETE from 11/02/2022 FINDINGS: BONES: There is again seen a trimalleolar fracture present. The medial malleolar fracture fragment i s now 4.6 mm laterally displaced. There is been increase in displacement of the posterior malleolar fracture fragment. No bony destructive lesion is seen. The comminuted fracture of the mid fibula is again seen and is grossly unchanged. JOINTS: There is a lateral and posterior dislocation of the talus relative to the distal tibia. The lateral displacement of the talus has slightly progressed since the prior examination. SOFT TISSUE: There is diffuse soft tissue swelling about the ankle, medial greater than lateral. The patient's ankle is in a splint. IMPRESSION: Slight worsening of the alignment of the trimalleolar fracture dislocation of the right ankle. DATA REPOSITORY: RADIATION DOSE DELIVERED:
--- NOTE | 2022-11-03 | DI.RAD_ITS ---
Exam(s) XR TIB/FIB RT EXAM: XR TIB/FIB RT CLINICAL HISTORY: f/u R ankle fracture, repeat fall. TECHNIQUE: 2D digital imaging was performed of the right tibia and fibula. Two images were obtained. AP and lateral views were obtained. COMPARISON: CR XR TIB/FIB RT from 11/02/2022 FINDINGS: BONES: There is again seen a comminuted fracture of the right fibula. There does not appear to be an y significant change in alignment of the fracture components compared to the prior examination. The distal tibia and fibula are included on the x-ray of the ankle. No bony destructive lesion is seen. SOFT TISSUE: Normal. IMPRESSION: Stable right fibular fracture. DATA REPOSITORY: RADIATION DOSE DELIVERED:
[2022-11-03 13:16] VITALS: BP 153/72; PULSE 79; RESP 16; TEMP 36.4; O2SAT 95
[2022-11-03 14:15] VITALS: BP 153/72; PULSE 79; RESP 16; TEMP 36.4; O2SAT 95
--- NOTE | 2022-11-03 14:25 | IN_ITS ---
Date of service: 11/03/22 Time of Service: 15:19 PT Notes Visit Reasons: Right ankle fracture dislocation,failure to thrive Physical Therapy Inpatient Initial Evaluation Date: 11/03/2022 Referring Doctor: Milo Diane MD PT Orders: PT CONSULT: S/P Ortho surgery. R ankle fracture dislocation. To undergo surgery at end of week. TDWB on R LE. Precautions: Fall. Standard. TDWB on R LE. Patient Profile/Admitting Diagnosis: Henry is a 67-year-old male patient who presented to the ED on 11/02/2022 with diagnosis of displaced fracture of the midshaft of the R fibula with distal tibial fracture with some talar displacement. A posterior slab splint was placed for the patient at the ED after a closed reduction of the talar dislocation was made. Patient is to have surgery later this week as soon as Pneumonia resolves per PA Abdoulaye. PMHX: All Active Problems?(Updated 11/02/22 @ 16:26 by Leon Sharif MD) Fracture of right tibia and fibula (Acute) Abrasion of right leg (Acute) Former cigarette smoker (Chronic) ~80 pack/yr hx. Annual LDCT COPD (chronic obstructive pulmonary disease) (Chronic) Osteoarthritis of left knee (Acute) Morbid obesity with BMI of 45.0-49.9, adult (Acute) Poor dentition (Chronic 06/25/17) Chronic pain of left knee (Chronic 06/25/17) Well adult (Chronic) check labs wt loss encouraged shingrix colon screening encouragedAlcohol use (Chronic) 3-4 beers / night Hypertension (Chronic) Medical History? Gout attack Hematuria, gross Rosacea (06/06/14) Social History/Home Situation: Son lives with patient in a private home with 5-6 steps to enter without rails. He works for the town of [place]. Equipment Owned/DME: Bilateral axillary crutches Subjective: Patient states that he can go home directly to his mother's house as her residence is handicap-accessible. He adds that he has a friend who can bring a wheelchair for him for when he goes home as needed to make it easier. States that his pain is considerably decreased from 12/10 at the ED to just 1/10 even with transfers. Objective: General Observation: Supine in bed. BRENDA wraps to R LE over posterior leg splint. High BMI. Mental Status: Alert and oriented as to person, place, time, and purpose. Able to pay attention, focus, and respond appropriately. Pain: 12/08 Vital Signs: WNL as closely monitored by nursing staff ROM: Right Lower Extremity: Hip flexion WFL. Hip abduction WFL. Knee flexion NT. Ankle dorsiflexion NT. Ankle plantarflexion NT. Left Lower Extremity: Hip flexion WFL. Hip abduction WFL. Knee flexion WFL. Ankle dorsiflexion WFL. Ankle plantarflexion WFL. Strength: Right Lower Extremity: NT Left Lower Extremity: Hip flexors 5/5. Hip abductors 5/5. Knee flexors 5/5. Knee extensors 5/5. Ankle dorsiflexors 5/5. Ankle plantarflexors 5/5. Bed Mobility/Transfers: Supine to sit minimal assist to R leg Sit to stand contact guard assist of 2 using bariatric FWW Stand to sit contact guard assist of 2 bariatric FWW Bed to reclining chair contact guard assist of 2 bariatric FWW Gait: Contact guard assist of 2 with patient able to semi hop for 2-3 x using his L LE, R LE bent at the knee/NWB. Balance: Static Sitting: Normal Dynamic Sitting: Normal Static Standing: Poor Dynamic Standing: Poor Special Tests: Mobility Limitations Standardized Measure [facility] AM-PAC 6 clicks Basic Mobility Inpatient Short Form: Raw Score: 11 CMS Score: 72% deficit Informed Consent/Education: Patient was instructed in purpose of PT consult and plan of care. Agreeable to proceed with established PT POC to achieve personal goals. Assessment: Patient has a planned surgery later this week for the fractures he sustained. Treatment focus is ensuring for safe transfers to and from bed using bariatric FWW to allow for positioning changes and be up for meals. Patient presents with clinical signs and symptoms consistent with current/admitting diagnoses that have resulted to mobility limitations, gait instability, generalized weakness, and overall ADL decline as demonstrated by the following impairment level findings: 1. Decreased strength to R leg and foot major muscle groups 2. Impaired sitting/standing balance 3. Impaired activity tolerance 4. Limitation of joint range of motion in R LE Impairments are contributing to the following functional limitations: 1. Decline in bed mobility skills 2. Decline in transfer skills 3. Increased completion time for mobility ADL performance 4. Increased risk for falls 5. Difficulty with managing steps alone safely Patient is assessed as a 75310 moderate complexity based on the following: History: 67-year-old female with past medical history as indicated above Examination: Demonstrable impairment in strength, balance, and mobility level with underlying impairments and functional limitations as exhibited above as well as deficit score of 72% utilizing the [facility] Mobility Inpa tient Short Form Presentation: evolving Decision Makin complexity Goals: Goals X1 week 1. Supine-Sit stand by assist 2. Sit-Supine stand by assist 3. Sit-Stand contact guard assist using bariatric walker 4. Stand-Sit contact guard assist using bariatric walker 5. Bed-Chair contact guard assist using bariatric walker 6. Chair-Bed contact guard assist using bariatric walker Plan of Care/Treatment Plan: 1-2x/day, 7 days/week x 1 week. Plan of care has been reviewed with the [employer] providing the service under Physical Therapy direction. Initiate Physical Therapy intervention for pain management as needed, strengthening, bed mobility, transfers, gait, stairs, balance training, and use of assistive device. DISCHARGE RECOMMENDATIONS: [] Home with no services [] [] Home with services [specify] [] Home with outpatient PT [] [] SNF for continued rehabilitation [] [] [facility] [] [] SNF versus LTC based on ability to participate and progress [] [X] TBD once surgery is done later this week TREATMENT CODE/TIME: 83108 x 30 minutes, 78747 x 10 minutes beginning at 14:25 PM. Thank you for the opportunity to participate in the care of this patient. Leeann Hardy PT, DPT, CLT [facility] [place], [place]
[2022-11-03] MEDS: Amoxicillin 875/Clav. 125 TAB PO (14:28)
[2022-11-03] MEDS: Acetaminophen 500 MG TAB 1000 MG PO ×2 (14:28→19:51)
--- NOTE | 2022-11-03 14:36 | W.PREOPHP ---
Documented by User: GLORIA Bynum 11/03/22 14:45 Assessment and Plan Assessment and plan (1) Closed Maisonneuve fracture of right lower extremity: Status: Acute Assessment and plan: ORIF right ankle. Details of surgery were discussed with patient as well as risks and pertinent anatomy. All questions were answered. Will also discontinue antibiotics unless he worsens including developing a productive cough or fever. History of Present Illness History of Present Illness Chief Complaint: R ankle injury Narrative: Henry is a 67-year-old male who was admitted today due to an ankle injury that he suffered yesterday (11/02/2022) when a log rolled onto his right ankle causing severe pain. He went to the emergency room where he was found to have a maisonneuve fracture of the right ankle. He was placed in a posterior slab splint and discharged home. While at home, he was unable to get up from a chair or ambulate anywhere throughout his house without significant help. He was therefore admitted today with a plan of an ORIF of his right ankle within the next few days. He also has been dealing with a cough for which she was prescribed antibiotics. He has not had a fever with this cough and states that he is significantly better. He did discontinue the antibiotics on his own a few days ago. Review of Systems Constitutional Constitutional: Denies fever(s) ENT Ears, Nose, Mouth, and Throat: Denies dizziness and Denies sore throat Cardiovascular Cardiovascular: Denies chest pain, Denies palpitations and Denies dyspnea Respiratory Respiratory: Denies cough and Denies dyspnea Gastrointestinal Gastrointestinal: Denies abdominal pain, Denies melena, Denies hematochezia, Denies diarrhea, Denies nausea and Denies vomiting Genitourinary Genitourinary: Denies hematuria and Denies dysuria Neurologic Neurologic: Denies dizziness Endocrine Endocrine: Denies palpitations PFSH All Active Problems (Updated 11/03/22 @ 14:44 by GLORIA Bynum) Closed Maisonneuve fracture of right lower extremity (Acute 11/02/22) Abrasion of right leg (Acute) Former cigarette smoker (Chronic) ~80 pack/yr hx. Annual LDCT COPD (chronic obstructive pulmonary disease) (Chronic) Osteoarthritis of left knee (Acute) Morbid obesity with BMI of 45.0-49.9, adult (Acute) Poor dentition (Chronic 06/25/17) Chronic pain of left knee (Chronic 06/25/17) Well adult (Chronic) check labs wt loss encouraged shingrix colon screening encouraged Alcohol use (Chronic) 3-4 beers / night Hypertension (Chronic) Medical History Gout attack Hematuria, gross Rosacea (06/06/14) Family History Mother No problems noted. Father , age 80 Heart disease Sister No problems noted. Maternal Grandfather , age 85 Heart disease Paternal Grandfather , age 62 Heart disease Maternal Grandmother , 66 Heart disease Stroke Paternal Grandmother , 90 Cancer Sister No problems noted. Sister No problems noted. Brother No problems noted. Brother , 59 Colon cancer Son No problems noted. Son No problems noted. Social History Smoking/Tobacco Use Status: Former Tobacco Use tobacco type: cigarettes Quit Date: 11/29/09 Tobacco: How many years used: 30 Second Hand Exposure: Yes Smoking risk assessment performed?: Yes Alcohol Intake: current Alcohol Intake frequency: a few times a week Alcohol type: beer Drug use: Never Substance use type: does not use Caregiver/Support person: No Household members: children Housing: house Do you need help understanding health information?: Never Pets and animals: No Sexually active: No Do you think of yourself as: straight/heterosexual Current gender identity: male What is your relationship status?: How often do you talk on the phone with friends or family?: three or more times per week How often do you get together with friends or relatives?: three or more times per week How often do you attend baptism or christianity services?: decline to answer Do you belong to any clubs or organized social groups?: no Panel score (0-1 are the most socially isolated patients): 1 What type of physical activity do you participate in: walking Duration: 60-90 minutes/day Frequency: daily Cathie/Church: No preference Special cathie needs: No Seatbelt use: sometimes Helmet use: No Drive intox or ride w/intox 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 Do you feel safe at home: Yes Do you feel safe in your relationship?: Yes Meds Allergies and Home Medications Allergies Allergy/AdvReac Type Severity Reaction Status Date / Time No Known Allergies Allergy Verified 10/30/22 14:16 Home Medications Medication Instructions Recorded Confirmed Type acetaminophen 500 mg tablet 1,000 mg PO Q6H PRN PRN Pain #100 10/05/16 11/03/22 Rx (Acetaminophen Extra Strength) tabs lisinopril 30 mg tablet 30 mg PO DAILY #90 tab-caps 06/15/22 11/03/22 Rx metoprolol succinate 25 mg 25 mg PO DAILY #30 tabs 08/12/22 11/03/22 Rx tablet,extended release 24 hr tiotropium bromide 2.5 2 inh inhalation QAM #4 grams 08/12/22 11/03/22 Rx mcg/actuation mist for inhalation (Spiriva Respimat) albuterol sulfate 90 mcg/actuation 2 inh inhalation Q6H PRN shortness 10/30/22 11/03/22 Rx aerosol inhaler of breath or wheezing #18 grams amlodipine 10 mg tablet 10 mg PO DAILY #90 tabs 10/30/22 11/03/22 Rx amoxicillin 875 mg-potassium 1 tab PO Q12H #14 tabs 10/30/22 11/03/22 Rx clavulanate 125 mg tablet azithromycin 250 mg tablet 250 mg PO DAILY 5 days #6 tabs 10/30/22 11/03/22 Rx prednisone 20 mg tablet 40 mg PO DAILY 5 days #10 tabs 10/30/22 11/03/22 Rx Exam Const General: cooperative and no acute distress Orientation: alert and awake [facility] Head: normocephalic and atraumatic Other: soft palate rises symmetrically, no erythema Eyes Conjunctivae: conjunctivae normal Sclera: sclerae normal Resp Effort & Inspection: normal respiratory effort Auscultation: wheezes lower bilaterally Cardio Rate: regular rate Rhythm: regular rhythm Heart Sounds: S1 normal, S2 normal and no murmurs Results Labs Result diagrams: 11/03/22 12:20 Last Vital Signs Temp 97.5 F L 11/03/22 14:15 Pulse 79 11/03/22 14:15 Resp 16 11/03/22 14:15 BP 153/72 H 11/03/22 14:15 Pulse Ox 95 11/03/22 14:15 Documented by User: Milo Diane MD 11/03/22 17:48 Assessment and Plan Assessment and plan (1) Closed Maisonneuve fracture of right lower extremity: Status: Acute Assessment and plan: ORIF right ankle. Details of surgery were discussed with patient as well as risks and pertinent anatomy. All questions were answered. Will also discontinue antibiotics unless he worsens including developing a productive cough or fever. I interviewed and examined the patient with Abdoulaye Huang PA-C. I agree with the documentation as above. The assessment and plan were formulated with my direct involvement. Henry is a 67-year-old who was in the emergency department yesterday after suffering a collision between a log and a log splitter. He suffered a Maisonneuve type fracture with ankle fracture dislocation about the right side. He had reduction performed but was unable to manage nonweightbearing precautions at home. He had a fall and was unable to mobilize on his own at home. Therefore, after receiving this information I advised him to be admitted to the hospital. I admitted to the service for pain control, mobilization physical therapy, strict elevation, and likely surgical fixation in the upcoming few days. Is imperative that the swelling comes down. Unfortunately, his ankle positioning had worsened after he was home and therefore I reduced the ankle on the floor with a new splint. Repeat x-rays after this did show improvement with the positioning of the fracture fragments. It is imperative that he keeps his leg elevated. It would likely have surgery in the next 2 to 3 days, by Dr. Holden. He does have a history of having a cough without fevers and chills. He has been COVID and flu negative. Chest x-ray performed today does not show any signs of pneumonia. He does not have a fever. This point we will continue to treat with his regular medications and avoid any antibiotics. I also have placed a physical therapy consult to start working on his mobilization with a nonweightbearing status which will be the case after the surgery is completed. I did discuss the case with Dr. Holden will be taking over the care of this patient after tomorrow as I am out of town. Milo Diane MD FAAOS FAAHKS PFSH All Active Problems (Updated 11/03/22 @ 14:44 by GLORIA Bynum) Closed Maisonneuve fracture of right lower extremity (Acute 11/02/22) Abrasion of right leg (Acute) Former cigarette smoker (Chronic) ~80 pack/yr hx. Annual LDCT COPD (chronic obstructive pulmonary disease) (Chronic) Osteoarthritis of left knee (Acute) Morbid obesity with BMI of 45.0-49.9, adult (Acute) Poor dentition (Chronic 06/25/17) Chronic pain of left knee (Chronic 06/25/17) Well adult (Chronic) check labs wt loss encouraged shingrix colon screening encouraged Alcohol use (Chronic) 3-4 beers / night Hypertension (Chronic) Medical History Gout attack Hematuria, gross Rosacea (06/06/14) Family History Mother No problems noted. Father , age 80 Heart disease Sister No problems noted. Maternal Grandfather , age 85 Heart disease Paternal Grandfather , age 62 Heart disease Maternal Grandmother , 66 Heart disease Stroke Paternal Grandmother , 90 Cancer Sister No problems noted. Sister No problems noted. Brother No problems noted. Brother , 59 Colon cancer Son No problems noted. Son No problems noted. Social History Smoking/Tobacco Use Status: Former Tobacco Use tobacco type: cigarettes Quit Date: 11/29/09 Tobacco: How many years used: 30 Second Hand Exposure: Yes Smoking risk assessment performed?: Yes Alcohol Intake: current Alcohol Intake frequency: a few times a week Alcohol type: beer Drug use: Never Substance use type: does not use Caregiver/Support person: No Household members: children Housing: house Do you need help understanding health information?: Never Pets and animals: No Sexually active: No Do you think of yourself as: straight/heterosexual Current gender identity: male What is your relationship status?: How often do you talk on the phone with friends or family?: three or more times per week How often do you get together with friends or relatives?: three or more times per week How often do you attend baptism or christianity services?: decline to answer Do you belong to any clubs or organized social groups?: no Panel score (0-1 are the most socially isolated patients): 1 What type of physical activity do you participate in: walking Duration: 60-90 minutes/day Frequency: daily Cathie/Church: No preference Special cathie needs: No Seatbelt use: sometimes Helmet use: No Drive intox or ride w/intox 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 Do you feel safe at home: Yes Do you feel safe in your relationship?: Yes Meds Allergies and Home Medications Allergies Allergy/AdvReac Type Severity Reaction Status Date / Time No Known Allergies Allergy Verified 10/30/22 14:16 Home Medications Medication Instructions Recorded Confirmed Type acetaminophen 500 mg tablet 1,000 mg PO Q6H PRN PRN Pain #100 10/05/16 11/03/22 Rx (Acetaminophen Extra Strength) tabs lisinopril 30 mg tablet 30 mg PO DAILY #90 tab-caps 06/15/22 11/03/22 Rx metoprolol succinate 25 mg 25 mg PO DAILY #30 tabs 08/12/22 11/03/22 Rx tablet,extended release 24 hr tiotropium bromide 2.5 2 inh inhalation QAM #4 grams 08/12/22 11/03/22 Rx mcg/actuation mist for inhalation (Spiriva Respimat) albuterol sulfate 90 mcg/actuation 2 inh inhalation Q6H PRN shortness 10/30/22 11/03/22 Rx aerosol inhaler of breath or wheezing #18 grams amlodipine 10 mg tablet 10 mg PO DAILY #90 tabs 10/30/22 11/03/22 Rx amoxicillin 875 mg-potassium 1 tab PO Q12H #14 tabs 10/30/22 11/03/22 Rx clavulanate 125 mg tablet azithromycin 250 mg tablet 250 mg PO DAILY 5 days #6 tabs 10/30/22 11/03/22 Rx prednisone 20 mg tablet 40 mg PO DAILY 5 days #10 tabs 10/30/22 11/03/22 Rx Results Labs Result diagrams: 11/03/22 12:20
[2022-11-03 15:10] VITALS: BP 136/75; PULSE 87; RESP 19; TEMP 36.9; O2SAT 94
--- NOTE | 2022-11-03 16:34 | DI.RAD_ITS ---
Exam(s) XR ANKLE RT 2V EXAM: XR ANKLE RT 2V CLINICAL HISTORY: s/p manipulation and resplinting. TECHNIQUE: 2D digital imaging was performed of the right ankle. Two images were obtained. AP and l ateral views were obtained. COMPARISON: CR XR ANKLE RT COMPLETE from 11/03/2022 CR XR TIB/FIB RT from 11/03/2022 FINDINGS: BONES: There does not appear to be any significant change in alignment of the right ankle fracture di slocation. No bony destructive lesion is seen. JOINTS: There is persistent widening of the medial ankle joint. SOFT TISSUE: There is diffuse soft tissue swelling. The ankle is in a splint. IMPRESSION: Stable alignment of the right ankle. DATA REPOSITORY: RADIATION DOSE DELIVERED:
[2022-11-03] MEDS: Ketorolac 15 MG/ML VIAL IVP (16:49)
[2022-11-03] MEDS: Normal Saline Flush 10 ML SYR IVP ×2 (16:50→19:51)
[2022-11-03 18:25] VITALS: BP 126/74; PULSE 77; RESP 20; TEMP 36.8; O2SAT 94
[2022-11-03 19:23] LABS: ALT 23 U/L (16-63); AST 21 U/L (15-37); Alkaline Phosphatase 71 U/L (46-116); Anion Gap 8.1 mmol/L (3-11); BUN 20 mg/dL (7-18); Bilirubin, Total 0.6 mg/dL (0.2-1.0); CO2 26.9 mmol/L (21.0-32.0); CREATININE 1.2 mg/dL (0.70-1.30); Calcium 8.5 mg/dL (8.5-10.1); Chloride 103 mmol/L (98-107); Glucose 134 mg/dL (74-106); Hemoglobin A1C 6.3 % (<5.7); Sodium 138 mmol/L (136-145); Total Protein 7.3 g/dL (6.4-8.2)
[2022-11-03 23:32] VITALS: BP 138/80; PULSE 74; RESP 19; TEMP 36.8; O2SAT 93
[2022-11-04] VITALS (12 sets, daily range): BP systolic 129–161; BP diastolic 74–82; PULSE 58–84; RESP 16–21; TEMP 36.3–37.2; O2SAT 88–98; BMI 43.4
[2022-11-04] MEDS: Normal Saline Flush 10 ML SYR IVP ×3 (01:14→21:15)
[2022-11-04] MEDS: LORazepam 1 MG TAB PO/SL (01:14)
[2022-11-04] MEDS: Ketorolac 15 MG/ML VIAL IVP ×2 (01:14→21:15)
[2022-11-04] MEDS: Tiotropium Bromide-Respimat 10 PUFF INH 2 PUFF IH (07:58)
--- NOTE | 2022-11-04 07:58 | W.PM.PROGNOT ---
Date of Service Date of service: 11/04/22 Time of Service: 09:30 Assessment and Plan Assessment and plan (1) Closed Maisonneuve fracture of right lower extremity: Status: Acute Assessment and plan: Henry is a 67-year-old who has a Maisonneuve type fracture of the right lower extremity. The repeat reduction yesterday did improve the positioning. He does have notable swelling of the right leg but it has not gotten significantly worse. There are still some wrinkles. His pain is controlled. His labs were stable. At this point he will likely go for operative fixation of the right ankle tomorrow or Wednesday with Dr. Holden. Dr. Holden will be taken over his care starting tomorrow. Continue with current pain control measures. Nonweightbearing right lower extremity. N.p.o. after midnight. Subjective Subjective Interval history since last seen: No acute issues. Pain has been controlled. Post-reduction x-rays yesterday show improvement with the positioning of the talus. He was able to mobilize over to the chair with minimal assistance. He denies any numbness or tingling. He has not required any pain medication. He denies any persistent cough. No fevers no chills. Exam Narrative Exam Narrative: Sitting up in the chair. No acute distress. Evaluation of the right leg shows some continued swelling about the right leg and ankle but the skin does have some wrinkles and it is compressible. No blisters. No pain with passive great toe extension or flexion. Sensation intact light touch over the deep and superficial peroneal nerve and tibial nerve. Objective Last Vital Signs Temp 36.8 C 11/04/22 07:40 Pulse 82 11/04/22 07:40 Resp 18 11/04/22 07:40 BP 144/81 H 11/04/22 07:40 Pulse Ox 94 11/04/22 07:40 Laboratory Results - last 24 hr 11/03/22 11/03/22 18:55 18:55 Sodium 138 Potassium 4.0 Chloride 103 Carbon Dioxide 26.9 Anion Gap 8.1 BUN 20 H Creatinine 1.2 Est GFR (CKD-EPI 2020) 66.70 Glucose 134 H Hemoglobin A1c 6.3 H Calcium 8.5 Total Bilirubin 0.6 AST 21 ALT 23 Alkaline Phosphatase 71 Total Protein 7.3 Albumin 3.0 L PAWSS Have you Been Recently Intoxicated or Drunk Within the Last 30 days?: No Have you Ever Experienced Previous Episodes of Alcohol Withdrawal?: No Have you ever Experienced Withdrawal Seizures?: No Have you ever Experienced Delirium Tremens(DT)s?: No Have you ever undergone Alcohol Rehabilitation Treatment (i.e, inpt ot outpatient treatment programs)?: No Have you ever Experienced Blackouts?: No Have you ever Combined Alcohol with other Downers within the last 90 days?: No Positive Blood Alcohol level on Presentation? [PCS.BAL]: No Result: 0
[2022-11-04] MEDS: Lisinopril 10 MG TAB 30 MG PO (08:30)
[2022-11-04] MEDS: amLODIPine 10 MG TAB PO (08:31)
[2022-11-04] MEDS: Multivitamin TAB 1 TAB PO (08:31)
[2022-11-04] MEDS: Thiamine 100 MG TAB PO (08:31)
[2022-11-04] MEDS: Folic Acid 1 MG TAB PO (08:31)
[2022-11-04] MEDS: Acetaminophen 500 MG TAB 1000 MG PO ×3 (08:32→21:15)
[2022-11-04] MEDS: Metoprolol CR 25 MG TABCR PO (08:32)
--- NOTE | 2022-11-04 10:30 | INITIAL_ITS ---
- If Service Date Differs Date of service: 11/04/22 Time of Service: 10:31 Care Management Initial Assess REASON FOR HOSPITALIZATION:: Right ankle fracture PAST MEDICAL HISTORY/PAST SURGICAL HISTORY:: All Active Problems. Closed Maisonneuve fracture of right lower extremity (Acute 11/02/22). Abrasion of right leg (Acute). Former cigarette smoker (Chronic). ~80 pack/yr hx. Annual LDCT. COPD (chronic obstructive pulmonary disease) (Chronic). Osteoarthritis of left knee (Acute). Morbid obesity with BMI of 45.0-49.9, adult (Acute). Poor dentition (Chronic 06/25/17). Chronic pain of left knee (Chronic 06/25/17). Well adult (Chronic). check labs. wt loss encouraged. shingrix. colon screening encouraged. Alcohol use (Chronic). 3-4 beers / night. Hypertension (Chronic). Medical History. Gout attack. Hematuria, gross. Rosacea (06/06/14) PREVIOUS FUNCTIONAL STATUS/SOCIAL/FAMILY SUPPORTS:: Henry lives in [place], alone. He has two adult children. 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 He is independent at baseline. CURRENT FUNCTIONAL STATUS:: Henry was sitting up in his chair with his leg elevated when CM met with him. He stated that he is feeling better today and his pain is well controlled. He explained how he was working when a log rolled onto his leg and he wasn't able to avoid it. He stated that he has started the worker's comp case with his employer's HR department, who has assured him that they will communicate with the hospital. He reported that per MD, he may go to surgery tomorrow. He stated that upon discharge he will go stay with his mother, whose home is handicap accessible. He stated that his son is working on getting a wheelchair and a commode from the [facility]. He was told by MD that he will likely be non weight bearing for 6 weeks after surgery. CM will continue to follow. ADVANCE DIRECTIVES:: Not on file. Has patient been provided with info about the portal/API?: Yes Did the patient sign up for the portal?: No CODE STATUS:: Full Code INSURANCE COVERAGE / FINANCIAL ISSUES:: BC/BS CURRENT HOME/COMMUNITY SERVICES/EQUIPMENT:: No current services or equipment PRIMARY CARE PHYSICIAN:: Les Carvajal POTENTIAL DISCHARGE NEEDS:: Evaluations for further needs, follow up appointments. PATIENT/FAMILY EDUCATION NEEDS:: Review discharge instructions and limitations with mobility, discussion of self care needs including ask me three. ANTICIPATED BARRIERS TO DISCHARGE:: Henry lives alone and may struggle with independent mobility, will evaluate post surgically. TRANSPORTATION:: Via private vehicle by family. PLAN:: Anticipate Henry will return home when medically cleared. He may benefit from services, if indicated. He will be driven home via private vehicle by family. He will follow up with Ortho, his PCP, and his discharge plan of care. CM will continue to follow.
--- NOTE | 2022-11-04 13:13 | PT.INTREAT ---
PT Notes Visit Reasons: Right Ankle Fracture Dislocation,Failure to Thrive Inpatient Physical Therapy Treatment Note [facility] Date: 11/04/2022 PRECAUTIONS: Fall, NWB R LE SUBJECTIVE: Henry is pleasant and agreeable to participating in PT. He reports that he is feeling better after the closed reduction last night. He reports that he has been trying to keep his R LE in the position that Dr. Diane recommended. OBJECTIVE: PAIN: No c/o pain BED MOBILITY/TRANSFERS Supine-sit: I Sit-supine: I Sit-stand: SBA with cueing for safety Stand-sit: SBA with cueing for safety Bed-Chair: SBA with FWW Chair-bed: SBA with FWW GAIT Assistive Device: FWW Weight bearing: NWB R LE Assist: SBA Distance: 5 hopping steps with L LE in a.m.; 5 shuffling steps with L LE in p.m. Deviation: Maintains appropriate WB restrictions without cueing ASSESSMENT: Patient tolerated session well without complaint. He demonstrates improved ability to complete bed mobility and bed<>chair transfers today compared to yesterday. He demonstrates appropriate maintenance of WB restrictions without cueing. PLAN: Continue with transfer training for improved safety with transfers. TREATMENT CODE/TIME: Session 1: 15 minutes; 17477 (09:11) Session 2: 15 minutes; [id number] (12:45)
--- NOTE | 2022-11-04 14:57 | W.ANESPRE ---
General Info Date of Service Date Performed: 11/04/22 Height: 6 ft Weight: 145.5 kg Body Mass Index (BMI): 43.4 Surgical Procedure: Operation Date: 11/05/22 16:25 Proposed Procedure Side Surgeon p Ankle ORIF and Syndesmosis Right Ward Holden MD Meds Allergies and Home Medications Allergies Allergy/AdvReac Type Severity Reaction Status Date / Time No Known Allergies Allergy Verified 10/30/22 14:16 Home Medication Medication Instructions Recorded acetaminophen 500 mg tablet 1,000 mg PO Q6H PRN PRN Pain #100 10/05/16 (Acetaminophen Extra Strength) tabs lisinopril 30 mg tablet 30 mg PO DAILY #90 tab-caps 06/15/22 metoprolol succinate 25 mg 25 mg PO DAILY #30 tabs 08/12/22 tablet,extended release 24 hr tiotropium bromide 2.5 2 inh inhalation QAM #4 grams 08/12/22 mcg/actuation mist for inhalation (Spiriva Respimat) albuterol sulfate 90 mcg/actuation 2 inh inhalation Q6H PRN shortness 10/30/22 aerosol inhaler of breath or wheezing #18 grams amlodipine 10 mg tablet 10 mg PO DAILY #90 tabs 10/30/22 amoxicillin 875 mg-potassium 1 tab PO Q12H #14 tabs 10/30/22 clavulanate 125 mg tablet azithromycin 250 mg tablet 250 mg PO DAILY 5 days #6 tabs 10/30/22 prednisone 20 mg tablet 40 mg PO DAILY 5 days #10 tabs 10/30/22 Current Visit Medications: Current Medications Generic Name Dose Route Start Last Admin Trade Name Freq PRN Reason Stop Dose Admin Acetaminophen 1,000 mg 11/03/22 14:00 11/04/22 13:48 Acetaminophen 500 Mg Tab PO 1,000 mg TID KRISTIAN Administration Albuterol Sulfate 2 puff 11/03/22 12:22 Albuterol Hfa 8 Gm 60 Puff Inh IH Q6H PRN PRN shortness of breath or wheezing Amlodipine Besylate 10 mg 11/04/22 08:30 11/04/22 08:31 Amlodipine 10 Mg Tab PO 10 mg DAILY KRISTIAN Administration Device 1 each 11/03/22 13:00 Inhaler, Assist Device DIRECTED [facility] Folic Acid 1 mg 11/04/22 08:30 11/04/22 08:31 Folic Acid 1 Mg Tab PO 11/10/22 08:31 1 mg QAM KRISTIAN Administration Sodium Chloride 500 mls @ 0 mls/hr 11/03/22 13:35 Saline 500ml Bag IV PRN PRN As Directed Sodium Chloride 50 mls @ 0 mls/hr 11/03/22 13:35 Saline 50ml Bag IV PRN PRN As Directed Ringer's Solution 1,000 mls @ 30 mls/hr 11/04/22 23:59 IV INFUSION KRISTIAN Ringer's Solution 1,000 mls @ 80 mls/hr 11/05/22 02:00 IV INFUSION KRISTIAN Ketorolac Tromethamine 15 mg 11/03/22 12:20 11/04/22 01:14 Ketorolac 15 Mg/Ml Vial IVP 11/08/22 12:19 15 mg Q6H PRN PRN Administration Lisinopril 30 mg 11/04/22 08:30 11/04/22 08:30 Lisinopril 10 Mg Tab PO 30 mg DAILY KRISTIAN Administration Lorazepam 0 mg 11/03/22 12:28 11/04/22 01:14 Lorazepam 1 Mg Tab PO/SL 1 mg DIRECTED PRN Administration Metoprolol Succinate 25 mg 11/04/22 08:30 11/04/22 08:32 Metoprolol Cr 25 Mg Tabcr PO 25 mg DAILY KRISTIAN Administration Multivitamins 1 tab 11/04/22 08:30 11/04/22 08:31 Multivitamin Tab PO 11/10/22 08:31 1 tab QAM KRISTIAN Administration Oxycodone HCl 5 mg 11/03/22 12:20 Oxycodone 5 Mg Tab PO Q4H PRN PRN Sodium Chloride 0 ml 11/03/22 20:00 11/04/22 08:33 Normal Saline Flush 10 Ml Syr IVP 10 ml BID KRISTIAN Administration Sodium Chloride 0 ml 11/03/22 13:35 11/04/22 01:14 Normal Saline Flush 10 Ml Syr IVP 10 ml PRN PRN Administration Thiamine HCl 100 mg 11/04/22 08:30 11/04/22 08:31 Thiamine 100 Mg Tab PO 11/10/22 08:31 100 mg QAM KRISTIAN Administration Tiotropium [place] 2 puff 11/04/22 08:30 11/04/22 07:58 Tiotropium [place]-Respimat 10 Puff Inh IH 2 puffs QAM KRISTIAN Administration PFSH Active Problems Active Problems: Problem Status Onset Code Closed [place] fracture of right lower extremity 11/02/22 S82.861A Abrasion of right leg S80.811A Former cigarette smoker Z87.891 COPD (chronic obstructive pulmonary disease) J44.9 Osteoarthritis of left knee M17.12 Morbid obesity with BMI of 45.0-49.9, adult E66.01, Z68.42 Poor dentition 06/25/17 K08.9 Chronic pain of left knee 06/25/17 M25.562, G89.29 Well adult Alcohol use Z78.9 Hypertension I10 Medical History Medical History Gout attack Hematuria, gross Rosacea (06/06/14) Tobacco Smoking/Tobacco Use Status: Former Tobacco Use Passive smoking exposure: Yes Second hand exposure: Yes Alcohol Alcohol Intake: current Alcohol intake frequency: a few times a week Alcohol type: beer Substance Use Substance use: Never Substance use type: does not use Vital Signs and Lab Results Vital Signs Most Recent Vital Signs in EMR: Most Recent Vital Signs Temp Pulse Resp BP Pulse Ox 36.8 C 70 17 129/74 94 11/04/22 11:18 11/04/22 11:18 11/04/22 11:18 11/04/22 11:18 11/04/22 11:18 Lab Results Result Diagrams: 11/03/22 18:55 Blood Type / Crossmatch: Patient ABO/Rh A Positive 11/02/22 Antibody Screen NEGATIVE 11/02/22 Complete Blood Count: White Blood Count 6.20 10^3/uL (4.4-10.8) 11/02/22 13:35 Red Blood Count 4.62 10^6/uL (4.36-5.78) 11/02/22 13:35 Hemoglobin 14.3 g/dL (13.5-17.5) 11/02/22 13:35 Hematocrit 44.4 % (40.0-50.0) 11/02/22 13:35 Platelet Count 272 10^3/uL (130-400) 11/02/22 13:35 Complete Metabolic Panel: Sodium 138 mmol/L (136-145) 11/03/22 18:55 Potassium 4.0 mmol/L (3.5-5.1) 11/03/22 18:55 Chloride 103 mmol/L (98-107) 11/03/22 18:55 Carbon Dioxide 26.9 mmol/L (21.0-32.0) 11/03/22 18:55 BUN 20 mg/dL (7-18) H 11/03/22 18:55 Creatinine 1.2 mg/dL (0.70-1.30) 11/03/22 18:55 Est GFR (CKD-EPI 2020) 66.70 (mL/min/1.73m2) 11/03/22 18:55 Calcium 8.5 mg/dL (8.5-10.1) 11/03/22 18:55 Albumin 3.0 g/dL (3.4-5.0) L 11/03/22 18:55 Glucose 134 mg/dL (74-106) H 11/03/22 18:55 Hemoglobin A1c 6.3 % (<5.7) H 11/03/22 18:55 Liver Function Panel: Alanine Aminotransferase (ALT/SGPT) 23 U/L (16-63) 11/03/22 18:55 Aspartate Amino Transf (AST/SGOT) 21 U/L (15-37) 11/03/22 18:55 Coagulation Panel: No Data to Display Cardiac Panel: No Data to Display Arterial Blood Gas: No Data to Display Venous Blood Gas: No Data to Display Pancreas Panel: No Data to Display Thyroid Panel: No Data to Display Infectious Disease: Coronavirus (COVID-19)(PCR) Negative (Negative) 11/02/22 13:41 Coronavirus 2019 Source Nasal/Nares 11/02/22 13:41 Blood Cultures: No Data to Display Toxicology Panel: No Data to Display Anesthesia Assessment and Plan Anesthesia History Personal History: No History of Anesthesia Complications Family History: No Family History of Anesthesia Complications Exercise Tolerance Exercise Tolerance: Metabolic Equivalents>4 Pertinent Negatives Pertinent Negatives: No Symptoms of GERD and No Major Pulmonary Symptoms or Complaints (OSCAR CPAP started this admit) Cardiac & Pulmonary Exam Cardiac Exam: Normal S1/S2 Heart Sounds Pulmonary Exam: Clear Bilateral Breath Sounds Implantable Cardiac Device Does patient have a Pacemaker or an ICD?: No Airway Exam Known Difficult Airway: No Mallampati Class: 1 Mouth Opening: Normal (> 3cm) Thyromental Distance: Greater than 3 cm Facial Hair: Full Fernandez Neck Range of Motion: Full ROM Neck Circumference: Thick Teeth Condition: Normal Dentition and Generalized Poor Dentition Airway Comments: 11,12 chipped Missing multiple, none loose per pt ASA Classification ASA Score: ASA 3 Emergency Case?: No NPO Status NPO Status: NPO Clears >2 hours, Solids >8 hours Anesthesia Plan Resuscitation Status: Full Code Anesthesia Technique: General Anesthesia Airway Planned: LMA Pain Management: Surgeon and patient request nerve block Monitors Used: Standard Monitors
--- NOTE | 2022-11-04 15:56 | W.ANESPOSTOP ---
Postoperative Evaluation Date, Time and Location Date Performed: 11/04/22 Time Performed: 15:57 Patient Location: Day Surgery Unit Vital Signs Most Recent Imported Vital Signs: Most Recent Vital Signs Temp Pulse Resp BP Pulse Ox 37.1 C 84 18 144/77 H 94 11/04/22 15:12 11/04/22 15:12 11/04/22 15:12 11/04/22 15:12 11/04/22 15:12 Pain Score Most Recent Pain Score: Most Recent Pain Score Pain Level 0 11/04/22 15:12 Assessment Mental Status: Awake (Alert & Oriented to Patient Baseline) Airway and Respiratory Function: Patent airway with normal (patient baseline) respiratory exam Cardiovascular Function: Hemodynamically Stable Hydration Status: Adequately Hydrated Nausea & Vomiting: No Nausea or Vomiting Pain: Pain is tolerable per patient Peripheral Nerve Block: Patient did not receive a nerve block
[2022-11-05] VITALS (14 sets, daily range): BP systolic 132–173; BP diastolic 69–91; PULSE 61–78; RESP 8–21; TEMP 35.9–37.1; O2SAT 92–96
[2022-11-05] MEDS: Lactated Ringers 1,000 ML 30 ML IV ×2 (00:05→12:26)
--- NOTE | 2022-11-05 06:45 | DI.RAD_ITS ---
Exam(s) XR ANKLE RT COMPLETE EXAM: XR ANKLE RT COMPLETE CLINICAL HISTORY: RIGHT ANKLE FRACTURE. TECHNIQUE: 2D digital imaging was performed of the right ankle. Three images were obtained. AP, la teral and oblique views were obtained. COMPARISON: CR XR ANKLE RT COMPLETE from 11/03/2022 CR XR ANKLE RT 2V from 11/03/2022 FINDINGS: BONES: There has been no change in alignment of the distal tibial fractures compared to the prior exa mination from 11/03/2022. The fibular fracture is not included on this examination. No bony destruct sarina lesion is seen. JOINTS: There is unchanged widening of the medial aspect of the ankle joint. SOFT TISSUE: There is soft tissue swelling of the ankle. The patient's ankle is in the splint. IMPRESSION: Stable alignment of the right ankle. DATA REPOSITORY: RADIATION DOSE DELIVERED:
[2022-11-05] MEDS: Tiotropium Bromide-Respimat 10 PUFF INH 2 PUFF IH (07:30)
[2022-11-05] MEDS: Bupivacaine 0.5% Pres-Free W/EPI 30 ML VIAL (08:10)
--- NOTE | 2022-11-05 08:19 | W.PM.OP ---
Date of service: 11/05/22 Time of Service: 10:00 Operative Note Operative Note DATE OF PROCEDURE: 11/05/22 PRE-OP DIAGNOSIS: Right displaced trimalleolar ankle fracture with syndesmosis disruption POST-OP DIAGNOSIS: same PROCEDURE: Right ankle: 1. Trimalleolar ORIF including posterior malleolus fixation: CPT# 37640) 2. Open treatment syndesmosis disruption, CPT #40591 SURGEON: Ward Holden REGISTERED NURSE SURGICAL SERVICES: Yee Murray ANESTHESIA TYPE: Local By Surgeon and General LMA/ETT Refer to Anesthesia Record ESTIMATED BLOOD LOSS: 10 TOURNIQUET TIME: 0 COMPLICATIONS: None Patient was transported to: PACU Patient's condition: stable Implants: Synths 3.5mm cortex and 4.0mm cancellous screws x5 Indications: Please see complete medical record for details. Findings: Posterior leg/calf superficial but moderately large wound with active bleeding presumably from pressure from prior splint. Small similar lesion on contralateral side possibly from EDUARDO hose. Procedure Description: In the operating room, general anesthesia was induced. The patient was positioned supine on the operating room table. All bony prominences were well-padded. Preoperative antibiotics were administered. The right ankle was prepped and draped in the usual sterile fashion. The correct patient, procedure, and side of the procedure were all verified prior to incision. The lateral, anterior, and medial surgical sites were pretty injected with 0.5% bupivacaine containing epinephrine. A curvilinear medial malleolus approach was used and retracting neurovascular structures and open reducing and provisionally clamping the medial malleolus fracture. Using fluoroscopic guidance the 2.5 mm drill was directed perpendicular to the fracture site and a 4.0 cancellous partially-threaded screw placed with a reassuringly good fixation and compressive strength. The clamp was removed and medial malleolus stable. Additional screw omitted to avoid traffic with planned multiple syndesmotic screws. Next, the posterior malleolus was inspected under lateral fluoroscopy and moderately sized and displaced. Given the posterior instability of the fracture, decision was made to proceed with fixation. Hyper dorsiflexion and posterior heel bump were used to reasonably well reduce this posterior malleolus fragment with ligamentotaxis. A mini open anterior approach was made down to bone carefully retracting neurovascular structures and the 2.5 mm drilled under fluoroscopic guidance centrally into the posterior malleus fragment and gently bicortically. A 4.0 mm cancellous partially-threaded screw was then placed with the threads just barely crossing the fracture site and some compression at the fracture site appreciated on fluoroscopy. Lastly, the distal lateral fibula was exposed at the level of the syndesmosis. The ankle was positioned in neutral. The mortise was reasonably reduced with medial and posterior fixation, but unstable with external rotation stress. The fibular fracture was near midshaft so syndesmosis fixation was done without direct fibula ORIF. Fibular length. Reason reasonable. The 2.5 mm drill was then directed in a quad cortical fashion just above the level of the syndesmosis and a 3.5 mm quad cortical screw placed. Distally, the drill was used again just above the level of the physeal scar excepting violation of the tib-fib joint for added fixation in this complex case. The drill was initially directed centrally but collided with the medial malleolus screw so was directed more posteriorly taking care to avoid the posterior and medial malleolus fractures. The maximal length 60 millimeter fully threaded 4.0 mm cancellous screw was placed with good bone hold. Lastly, a third quad cortical 3.5 mm cortical syndesmotic screw was placed more proximally directing centrally in the medial distal tibia. The ankle was inspected and fluoroscopically stressed without any displacement or instability of the ankle mortise or fracture sites. There was no posterior displacement of the talus. The ankle mortise and tib-fib overlap were appropriate. The patient awoke from anesthesia without complication and was transferred to the recovery room in a stable condition.
[2022-11-05] MEDS: Metoprolol CR 25 MG TABCR PO (08:50)
[2022-11-05] MEDS: amLODIPine 10 MG TAB PO (08:50)
[2022-11-05] MEDS: Normal Saline Flush 10 ML SYR IVP ×3 (08:55→22:37)
--- NOTE | 2022-11-05 11:24 | DI.RAD_ITS ---
Exam(s) XR ANKLE RT COMPLETE EXAM: XR ANKLE RT COMPLETE CLINICAL HISTORY: RIGHT ANKLE FX TECHNIQUE: 2D and realtime digital imaging was performed. CONTRAST MATERIAL: Refer to procedure report. COMPARISON: CR XR ANKLE RT COMPLETE from 11/05/2022 FINDINGS: Fluoroscopy was provided for Dr. Holden during the performance of a open reduction and internal fixat ion of the distal tibial fractures.. Please refer to the procedure report for complete details. Ka,r=3.46 mGy IMPRESSION: RADIATION DOSE DELIVERED:
--- NOTE | 2022-11-05 12:14 | W.ANESPOSTOP ---
Postoperative Evaluation Date, Time and Location Date Performed: 11/05/22 Time Performed: 12:14 Patient Location: PACU Vital Signs Most Recent Imported Vital Signs: Most Recent Vital Signs Temp Pulse Resp BP Pulse Ox 36.2 C L 69 14 150/91 H 93 11/05/22 12:07 11/05/22 12:07 11/05/22 12:07 11/05/22 12:07 11/05/22 12:07 Most Recent Vital Signs Temp Pulse Resp BP Pulse Ox 37.1 C 84 18 144/77 H 94 11/04/22 15:12 11/04/22 15:12 11/04/22 15:12 11/04/22 15:12 11/04/22 15:12 Pain Score Most Recent Pain Score: Most Recent Pain Score Pain Level 0 11/04/22 23:25 Assessment Mental Status: Awake (Alert & Oriented to Patient Baseline) Airway and Respiratory Function: Patent airway with normal (patient baseline) respiratory exam Cardiovascular Function: Hemodynamically Stable Hydration Status: Adequately Hydrated Nausea & Vomiting: No Nausea or Vomiting Pain: Pain is tolerable per patient Peripheral Nerve Block: Patient did not receive a nerve block
[2022-11-05] MEDS: Ketorolac 15 MG/ML VIAL IVP (12:25)
[2022-11-05] MEDS: ACETAMINOPHEN 1,000 MG/100 ML BTL 400 MG IVPB (12:32)
--- NOTE | 2022-11-05 12:36 | PDOC.CMPRO ---
- If Service Date Differs Date of service: 11/05/22 Time of Service: 12:36 Care Management Progress Note S/O: Henry was brought to the OR with Dr. Holden for Right trimalleolar ankle fracture ORIF (medial and lateral malleoli) with syndesmotic fixation. He will be closely monitored post surgically and evaluated by PT. Anticipate Bariatric Walker will be provided for discharge, possible VNA orders as well. CM continues to follow. A: 67 year old male admitted to [facility] 11/03/22 for Right Ankle Fracture dislocation, Failure to thrive P: Henry will be evaluated for increased needs, awaiting PT recommendations with post surgical evaluation. Anticipate Bariatric Walker will be provided and possible new home health orders, as well. He stated upon discharge he will go stay with his mother, whose home is handicap accessible. He stated that his son is working on getting a wheelchair and a commode from the [facility]. He was told by MD that he will likely be non weight bearing for 6 weeks after surgery, Henry may need a lift assist. CM continues to follow.
[2022-11-05] MEDS: HYDROmorphone 2 MG/ML SYR IVP (12:39)
[2022-11-05] MEDS: ceFAZolin 1 GM/50 ML BAG IVPB ×2 (13:56→22:38)
--- NOTE | 2022-11-05 14:13 | W.PM.PROGNOT ---
Date of Service Date of service: 11/05/22 Time of Service: 14:03 Assessment and Plan Assessment and plan (1) Displaced trimalleolar fracture of right ankle: Status: Acute Assessment and plan: 67-year-old male postop day #0 status post Right trimalleolar ankle fracture ORIF with syndesmotic fixation Complete 24 hours postoperative antibiotics Pain control-Multimodal Physical therapy ordered: Protected weightbearing as best possible as tolerated with assist device- May require bariatric walker. Strict elevation right ankle while in bed or chair. Aspirin 325 mg twice daily for DVT prophylaxis starting tomorrow Padding under legs. Dressings applied to bilateral legs/calves due to wounds already developed. Change as needed. Reposition frequently. Plan for potential discharge home tomorrow Follow-up with Dr. Holden outpatient [facility] in 10-14 days Subjective Subjective Interval history since last seen: Feeling well, no major complaints or pain. Denies any numbness or tingling about the foot or ankle. Exam Narrative Exam Narrative: Comfortable, resting, right short leg splint clean dry intact. Appropriately elevated on pillows. Intact wiggling toes. No numbness or tingling exposed superficial peroneal, deep peroneal, tibial nerve distribution. Objective Last Vital Signs Temp 98.1 F 11/05/22 07:16 Pulse 69 11/05/22 07:16 Resp 18 11/05/22 07:16 BP 146/82 H 11/05/22 07:16 Pulse Ox 95 11/05/22 07:16 PAWSS Have you Been Recently Intoxicated or Drunk Within the Last 30 days?: No Have you Ever Experienced Previous Episodes of Alcohol Withdrawal?: No Have you ever Experienced Withdrawal Seizures?: No Have you ever Experienced Delirium Tremens(DT)s?: No Have you ever undergone Alcohol Rehabilitation Treatment (i.e, inpt ot outpatient treatment programs)?: No Have you ever Experienced Blackouts?: No Have you ever Combined Alcohol with other Downers within the last 90 days?: No Positive Blood Alcohol level on Presentation? [PCS.BAL]: No Result: 0
[2022-11-05] MEDS: Acetaminophen 500 MG TAB 1000 MG PO (19:44)
[2022-11-06] MEDS: Acetaminophen 500 MG TAB 1000 MG PO ×2 (05:16→13:24)
[2022-11-06] MEDS: ceFAZolin 1 GM/50 ML BAG IVPB (06:28)
[2022-11-06 06:38] VITALS: BP 148/86; PULSE 65; RESP 18; TEMP 36.4; O2SAT 96
[2022-11-06] MEDS: Tiotropium Bromide-Respimat 10 PUFF INH 2 PUFF IH (07:28)
--- NOTE | 2022-11-06 07:43 | DSE_ITS ---
Date of service: 11/06/22 Time of Service: 07:37 DS: Diagnosis Discharge Diagnosis (1) Displaced trimalleolar fracture of right ankle: Status: Acute Discharge Plan Disposition Patient Disposition: Swing Bed(Skilled,SB1) Condition: Stable Discharge Details Reason For Visit: Right Ankle Fracture Dislocation,Failure to Thrive Admit Date/Time: 11/03/22 12:20 Admit Provider: Milo Diane Attending Provider: Milo Diane Primary Care Provider: Les Carvajal Hospital Course Hospital Course: Admitted to orthopedic service on 11/03/2022 for displaced right trimalleolar ankle fracture. Closed reduced at that time with subsequent ORIF on 11/05/2022. Separately, started on empiric treatment for community-acquired pneumonia on 10/30/2022 by his outpatient primary care doctor with persistent cough but otherwise resolving symptoms and negative chest x-ray on this admission. On 11/06/2022 transferred to swing bed status on hospitalist service pending placement. Home Meds and New Rx's Prescriptions: New aspirin 325 mg tablet,delayed release (DR/EC) 325 mg PO BID 14 Days Qty: 28 0RF naproxen 250 mg tablet 250 - 500 mg PO BID PRNQty: 40 0RF Rx Instructions: take with a meal oxycodone 5 mg tablet 5 - 10 mg PO Q4H MDD 30 mg PRN (Reason: moderate to severe pain) Qty: 18 0RF Continued metoprolol succinate 25 mg tablet extended release 24 hr 25 mg PO DAILY Qty: 30 2RF Spiriva Respimat 2.5 mcg/actuation mist 2 inh inhalation QAM Qty: 4 2RF amlodipine 10 mg tablet 10 mg PO DAILY Qty: 90 3RF amoxicillin-pot clavulanate 875-125 mg tablet 1 tab PO Q12H Qty: 14 0RF Rx Instructions: Take 1 tablet twice a day for 7 days azithromycin 250 mg tablet 250 mg PO DAILY 5 Days Qty: 6 0RF Rx Instructions: Take 2 tablets on day one and then 1 tablet once a day for the next 4 days prednisone 20 mg tablet 40 mg PO DAILY 5 Days Qty: 10 0RF Rx Instructions: 2 tablets by mouth once a day for 5 days albuterol sulfate 90 mcg/actuation HFA aerosol inhaler 2 inh inhalation Q6H PRN (Reason: shortness of breath or wheezing) Qty: 18 4RF lisinopril 30 mg tablet 30 mg PO DAILY Qty: 90 3RF Rx Instructions: increased dose/ take one tablet daily acetaminophen [Acetaminophen Extra Strength] 500 MG tablet 1,000 mg PO Q6H PRN PRN (Reason: Pain) Qty: 100 0RF Rx Instructions: max 3 x day Discharge Instructions Instructions: ORIF of an Ankle Fracture (DC) Additional Instructions: Surgery 11/05/22 Right trimalleolar ankle fracture ORIF with syndesmotic fixation Activity: Protected weightbearing as best possible with assist device. May rest splint on ground for stance or balance. Strict elevation to minimize swelling and discomfort. Wiggle toes to prevent stiffness and improve circulation. A physical therapy prescription will be provided separately in the office at follow-up. Prescriptions: Aspirin 325 mg take 1 daily twice to prevent a blood clot for 2 weeks Naproxen 250 mg take 1-2 every 12 hours with a meal as needed for moderate pain Oxycodone 5 mg take 1-2 every 4-6 hours as needed for severe pain You may use [id number]-[id number] Tylenol (acetaminophen) as needed for mild pain. These pain medications may be taken all at once or in different combinations as needed. Also, recommend Colace (docusate) as a stool softener as surgery and pain medicine cause constipation. You may try capw-[id number]-sywtxdk diphenhydramine (Benadryl) 25-50 mg nightly as a sleep aid Dressings: Leave splint and dressing in place until follow-up. Keep clean and dry at all times. Follow-up: 10-[address] Holden You may take off the leg compression stockings this evening at home. You may also leave them on a few days longer if you have a history of leg swelling or edema. Let us know right away if you develop any redness, drainage, fevers, chest pain, or trouble breathing. Do not drink alcohol or drive for at least 24 hours after anesthesia. Please call the office during business hours with any questions or concerns. Stand Alone Forms: Nursing Discharge Form Referrals: Milo Diane MD [ [facility] STAFF PHYSICIAN] - 11/17/22 3:00 pm Activity:: As above Equipment/Supplies:: Walker Diet:: As Tolerated Discharge Orders Discharge Orders: Discharge Order (Routine); Ordered 11/06/22 Ordered By: Ward Holden DS: Summary Time Spent with Patient providing and/or coordinating discharge services: Less than 30 minutes Status at Discharge Functional status at discharge: uses cane/walker Overall status at discharge: patient is progressing back to baseline Mental Status: mental status grossly normal Speech and Movement: speech and movement normal Mood: congruent mood Affect: normal affect Exam Narrative Exam Narrative: Comfortable, resting, right short leg splint clean dry intact. Breathing comfortably on room air. No cough. Appropriately elevated on pillows. Intact wiggling toes. No numbness or tingling exposed superficial peroneal, deep peroneal, tibial nerve distribution. No signs of blood clot or infection Psych Mental Status: mental status grossly normal Speech and Movement: speech and movement normal Mood: congruent mood Affect: normal affect DS: Data Vitals/I&O Vitals and I&O: Vital Signs Temperature 98.1 F 11/05/22 07:16 Temperature Source Tympanic 11/05/22 07:16 Pulse 69 11/05/22 07:16 Pulse Rhythm Regular 11/05/22 06:15 Respiratory Rate 18 11/05/22 07:16 Respiratory Effort Non-Labored 11/05/22 06:15 Respiratory Depth Normal 11/05/22 06:15 Respiratory Pattern Normal 11/05/22 06:15 Blood Pressure 146/82 H 11/05/22 07:16 Pulse Oximetry 95 11/05/22 07:16 Oxygen Delivery Method Room Air 11/05/22 07:16 Oxygen Flow Rate 0 11/05/22 07:16 Pain Level 0 11/04/22 23:25 Comment 11/04/22 02:00 Intake & Output 11/04/22 11/04/22 11/05/22 11:59 23:59 11:59 Intake Total 600 / 1320 720 / 1320 82.5 / 82.5 Output Total 150 / 825 675 / 825 300 / 300 Balance 450 / 495 45 / 495 -217.5 / -217.5 Weight 338 lb 3.025 oz Intake: IV 82.5 / 82.5 Oral 600 / 1320 720 / 1320 Output: Urine 150 / 825 675 / 825 300 / 300 Other: Urine Color Dark Estella Light Estella Dark Estella Urine Appearance Clear Clear Clear Urine Odor None None None Comment pt reporrts using urinal this am, voiding without difficulty Stool Size Moderate Stool Characteristics Soft Voiding Methods Urinal Urinal Urinal PFSH All Active Problems (Updated 11/05/22 @ 09:25 by Ward Holden MD) Displaced trimalleolar fracture of right ankle (Acute 11/02/22) Abrasion of right leg (Acute) Former cigarette smoker (Chronic) ~80 pack/yr hx. Annual LDCT COPD (chronic obstructive pulmonary disease) (Chronic) Osteoarthritis of left knee (Acute) Morbid obesity with BMI of 45.0-49.9, adult (Acute) Poor dentition (Chronic 06/25/17) Chronic pain of left knee (Chronic 06/25/17) Well adult (Chronic) check labs wt loss encouraged shingrix colon screening encouraged Alcohol use (Chronic) 3-4 beers / night Hypertension (Chronic) Medical History (Updated 11/05/22 @ 09:25 by Ward Holden MD) Gout attack Hematuria, gross Rosacea (06/06/14) Family History Mother No problems noted. Father , age 80 Heart disease Sister No problems noted. Maternal Grandfather , age 85 Heart disease Paternal Grandfather , age 62 Heart disease Maternal Grandmother , 66 Heart disease Stroke Paternal Grandmother , 90 Cancer Sister No problems noted. Sister No problems noted. Brother No problems noted. Brother , 59 Colon cancer Son No problems noted. Son No problems noted. Social History Smoking/Tobacco Use Status: Former Tobacco Use tobacco type: cigarettes Quit Date: 11/29/09 Tobacco: How many years used: 30 Second Hand Exposure: Yes Smoking risk assessment performed?: Yes Alcohol Intake: current Alcohol Intake frequency: a few times a week Alcohol type: beer Drug use: Never Substance use type: does not use Caregiver/Support person: No Household members: children Housing: house Do you need help understanding health information?: Never Pets and animals: No Sexually active: No Do you think of yourself as: straight/heterosexual Current gender identity: male What is your relationship status?: How often do you talk on the phone with friends or family?: three or more times per week How often do you get together with friends or relatives?: three or more times per week How often do you attend spiritism or gnosticism services?: decline to answer Do you belong to any clubs or organized social groups?: no Panel score (0-1 are the most socially isolated patients): 1 What type of physical activity do you participate in: walking Duration: 60-90 minutes/day Frequency: daily Cathie/Yazidism: No preference Special cathie needs: No Seatbelt use: sometimes Helmet use: No Drive intox or ride w/intox straddle bug driver: No Do you feel safe at home: Yes Do you feel safe in your relationship?: Yes
[2022-11-06 08:15] VITALS: BP 151/83; PULSE 71
[2022-11-06] MEDS: Multivitamin TAB 1 TAB PO (08:16)
[2022-11-06] MEDS: amLODIPine 10 MG TAB PO (08:16)
[2022-11-06] MEDS: Lisinopril 10 MG TAB 30 MG PO (08:16)
[2022-11-06] MEDS: Aspirin E.C. 325 MG TABEC PO (08:16)
[2022-11-06] MEDS: Thiamine 100 MG TAB PO (08:16)
[2022-11-06] MEDS: Metoprolol CR 25 MG TABCR PO (08:16)
[2022-11-06] MEDS: Folic Acid 1 MG TAB PO (08:16)
[2022-11-06] MEDS: Normal Saline Flush 10 ML SYR IVP (08:17)
--- NOTE | 2022-11-06 08:35 | PT.INIE ---
Date of service: 11/06/22 Time of Service: 08:35 PT Notes Visit Reasons: Right Ankle Fracture Dislocation,Failure to Thrive Physical Therapy Inpatient Initial Evaluation Date: 11/06/2022 Referring Doctor:? Milo Diane MD PT Orders: PT CONSULT: S/P Ortho surgery Precautions: Fall. Standard. Protected weight bearing on R LE. Patient Profile/Admitting Diagnosis:? Henry is a 67-year-old male patient who presented to the ED on 11/02/2022 with diagnosis of displaced fracture of the midshaft of the R fibula with distal tibial fracture with some talar displacement.? On 11/03/2022, a posterior slab splint was placed for the patient at the ED after a closed reduction of the talar dislocation was made to stabilize the fracture while his Pneumonia cleared. He is S/P ORIF of R displaced trimallleolar fracture with open treatment syndesmosis disruption on postoperative day 1. PMHX: All Active Problems?(Updated 11/02/22 @ 16:26 by Leon Sharif MD) Fracture of right tibia and fibula (Acute) Abrasion of right leg (Acute) Former cigarette smoker (Chronic) ~80 pack/yr hx. Annual LDCT COPD (chronic obstructive pulmonary disease) (Chronic) Osteoarthritis of left knee (Acute) Morbid obesity with BMI of 45.0-49.9, adult (Acute) Poor dentition (Chronic 06/25/17) Chronic pain of left knee (Chronic 06/25/17) Well adult (Chronic) check labs wt loss encouraged shingrix colon screening encouragedAlcohol use (Chronic) 3-4 beers / night Hypertension (Chronic) Medical History? Gout attack Hematuria, gross Rosacea (06/06/14) Social History/Home Situation: Son lives with patient in a private home with 5-6 steps to enter without rails.? He works for the town of [place].? Equipment Owned/DME: Bilateral axillary crutches Subjective: Patient appears quite nervous about cleaning himself up after a bowel movement and pulling his undergarment up afterwards when he goes to his mother's house as he does not want to bother her with these stuff. Patient states that he can go home directly to his mother's house as her residence is handicap-accessible.? The bed in his mom's house is too high and so he states that he will just plan to stay on the recliner to sleep in the meantime. He adds that he has a 29.5 [address] long hallway from where the recliner is to the handicap-accessible bathroom and that in case he will need it, he states that he has a friend who can bring a wheelchair for him for when he goes home as needed to make it easier.? Pain is now at 3/10 after walking about 25 feet using bariatric walker. Objective: General Observation: Supine in bed.? BRENDA wraps to R LE over fixed R LE.? High BMI. IV access through R UE. Mental Status: Alert and oriented as to person, place, time, and purpose. Able to pay attention, focus, and respond appropriately. Pain: 3/10 Vital Signs: WNL as closely monitored by nursing staff ROM: Right Lower Extremity: Hip flexion WFL. Hip abduction WFL. Knee flexion NT. Ankle dorsiflexion NT. Ankle plantarflexion NT. Left Lower Extremity: Hip flexion WFL. Hip abduction WFL. Knee flexion WFL. Ankle dorsiflexion WFL. Ankle plantarflexion WFL. Strength: Right Lower Extremity: R hip 4-/5. R knee extensors 3-/5. R knee flexors 3-/5. Left Lower Extremity: Hip flexors 5/5. Hip abductors 5/5. Knee flexors 5/5. Knee extensors 5/5. Ankle dorsiflexors 5/5. Ankle plantarflexors 5/5. Bed Mobility/Transfers: Sit to stand with stand by assist using bariatric FWW Stand to sit?with stand by assist using bariatric FWW Bed to reclining chair?with stand by assist using bariatric FWW Toiletting assist: 1) strategy to do independent pericare after bowel movement was done with patient 2) strategy to pull undergarment up independently was done with patient Gait: 25 feet using bariatric FWW with TDWB to minimal weight bearing on the R LE with report of 3/10 pain in the side of the R leg that subsided with rest. Step-to gait pattern sometimes but mostly TDWB as patient appears still anxious about putting R feet down. Wheelchair follow for safety. Balance: Static Sitting: Normal Dynamic Sitting: Normal Static Standing: Poor Dynamic Standing: Poor Special Tests: Mobility Limitations Standardized Measure [facility] AM-PAC 6 clicks Basic Mobility Inpatient Short Form: Raw Score: 20? CMS Score: 36% deficit? ? ? Informed Consent/Education:? Patient was instructed in purpose of PT consult and plan of care. Agreeable to proceed with established PT POC to achieve personal goals. Assessment: Patient will benefit best with HH PT/OT at home for training in the home environment. He is able to cover about the same distance as he would at home using the bariatric FWW. Alternatively, he will have a wheelchair that he may use to negotiate the distance from reclining chair to the bathroom if pain becomes an issue at home. Henry is a 67-year-old male patient who presented to the ED on 11/02/2022 with diagnosis of displaced fracture of the midshaft of the R fibula with distal tibial fracture with some talar displacement.? On 11/03/2022, a posterior slab splint was placed for the patient at the ED after a closed reduction of the talar dislocation was made to stabilize the fracture while his Pneumonia cleared. He is S/P ORIF of R displaced trimallleolar fracture with open treatment syndesmosis disruption on postoperative day 1. Patient presents with clinical signs and symptoms consistent with current/admitting diagnoses that have resulted to mobility limitations, gait instability, generalized weakness, and overall ADL decline as demonstrated by the following impairment level findings: 1.? Decreased strength to R leg and foot major muscle groups 2.? Impaired standing balance 3.? Impaired activity tolerance 4.? Limitation of joint range of motion in R LE Impairments are contributing to the following functional limitations: 1.? Decline in bed mobility skills 2.? Decline in transfer skills 3.? Increased completion time for mobility ADL performance Patient is assessed as a 71669 moderate complexity based on the following: History: 67-year-old female with past medical history as indicated above Examination: Demonstrable impairment in strength, balance, and mobility level with underlying impairments and functional limitations as exhibited above as well as deficit score of 72% utilizing the [facility] Mobility Inpatient Short Form Presentation: evolving Decision Makin complexity Goals: Goals X1 week 1. Sit-Stand from reclining chair independent using bariatric walker 2. Stand-Sit onto reclining chair independent using bariatric walker 3. Bed-Chair independent using bariatric walker 4. Chair-Bed independent using bariatric walker Plan of Care/Treatment Plan: 1-2x/day, 7 days/week x 1 week. Plan of care has been reviewed with the AFTER SCHOOL PROGRAM ASSISTANT providing the service under Physical Therapy direction. Initiate Physical Therapy intervention for pain management as needed, strengthening, bed mobility, transfers, gait, stairs, balance training, and use of assistive device. DISCHARGE RECOMMENDATIONS: [] ? Home with no services [] [X] ? Home with services . HOme when medically cleared by orthopedic surgeon. Patient will benefit from home health PT services in order to progress mobility level using least restrictive assistive ambulatory device, assess home safety, identify additional equipment needs, and establish a functional maintenance program that will increase ability of patient to remain at home. [] ? Home with outpatient PT [] [] ? SNF for continued rehabilitation [] [] ? Long-Term Care [] [] ? SNF versus LTC based on ability to participate and progress [] TREATMENT CODE/TIME: 31056 x 20 minutes,? 15831 x 25 minutes beginning at 8:35 AM. Thank you for the opportunity to participate in the care of this patient. Leeann Hardy PT, DPT, CLT [facility] [place], [place]
[2022-11-06 11:07] VITALS: BP 127/74; PULSE 66; RESP 18; TEMP 36.7; O2SAT 96
--- NOTE | 2022-11-06 12:17 | CMPROGNOTE_ITS ---
- If Service Date Differs Date of service: 11/06/22 Time of Service: 12:17 Care Management Progress Note S/O: Henry will transition to SWB 1 today for continued PT to increase independence with mobility and transfers, considering his non weight bearing status for 6 weeks post surgically. He will work with PT over the weekend and will be reevaluated for discharge on Wednesday. If he continues to require rehab level of care, he will transition to a rehab facility. CM discussed this with Henry, who is in agreement with this plan, and feels confident that he will be ready for discharge home early next week. He reported that his friend is working on obtaining a wheelchair for him. He stated that he may require a commode, which CM will order through [employer], billing his worker's compensation. CM communicated with his worker's comp team, who stated that they do not require a PA. He may need assistance with transportation home, if family is unable to safely transport. CM will continue to follow. A: Henry is a 67 year old male admitted to [facility] on 11/03/22 with R shelby fracture, failure to thrive. P: Henry will transition to SWB 1 today for continued PT to increase independence with mobility and transfers. He will return home once he meets his goals with PT, likely early next week. His family will provide transport vs RCT w/c van, if indicated. He will follow up with his PCP and discharge plan of care. CM will continue to follow.
--- NOTE | 2022-11-06 13:27 | PT.INTREAT ---
Date of service: 11/06/22 Time of Service: 13:00 PT Notes Visit Reasons: Right Ankle Fracture Dislocation,Failure to Thrive Inpatient Physical Therapy Treatment Note [facility] Date: 11/06/2022 PRECAUTIONS: Fall, NWB R LE SUBJECTIVE: Henry is pleasant and agreeable to participating in PT. He reports that he is feeling better, however, he is still anxious about ambulating too far, he is afraid of falling. OBJECTIVE: PAIN: Patient complained of pain in R LE with gait training BED MOBILITY/TRANSFERS Sit-stand: SBA with cueing for safety Stand-sit: SBA GAIT Assistive Device: FWW Weight bearing: NWB R LE Assist: SBA Distance: 32' Deviation: Maintains appropriate WB restrictions without cueing, pain and fatigue in L knee, standing rest x1 THEREX: Patient was instructed in a LE strengthening and stabilization program, completed in a long-sitting position, to include: toe mobility, quad sets, glute sets, heel slides and hip abduction. ASSESSMENT: Patient tolerated session well with complaint of increased pain in R LE. He demonstrates improved ability to complete transfers and gait training with use of FWW. He demonstrates appropriate maintenance of WB restrictions without cueing. PLAN: Continue with progression of gait tolerance and B LE strengthening for improved activity tolerance. TREATMENT CODE/TIME: 20 minutes; 44589 (13:14)
--- NOTE | 2022-11-06 16:14 | NUR.NOTE ---
Nursing Note: Pt. was discharged from acute inpatient status and was admitted to swingbed inpatient status per MD order.
== END 2022-11-06 14:24 | disposition swing bed (61) | DRG 493 ==
PROVIDERS: Student in an Organized Health Care Education/Training Program; Admitting Provider Student in an Organized Health Care Education/Training Program; PCP Family Medicine; Visit Provider Student in an Organized Health Care Education/Training Program
PROC: 0QSJ04Z Reposition Right Fibula with Internal Fixation Device, Open Approach (ICD-10-PCS; CPT 27823; principal; 2022-11-05 10:00)
DX: S82.851A Displaced trimalleolar fracture of right lower leg, initial encounter for closed fracture (principal); Z68.41 Body mass index [BMI] 40.0-44.9, adult; S93.431A Sprain of tibiofibular ligament of right ankle, initial encounter; W20.8XXA Other cause of strike by thrown, projected or falling object, initial encounter; R05.1 Acute cough; Z87.891 Personal history of nicotine dependence; J44.9 Chronic obstructive pulmonary disease, unspecified; M17.12 Unilateral primary osteoarthritis, left knee; E66.01 Morbid (severe) obesity due to excess calories; G89.29 Other chronic pain; F10.90 Alcohol use, unspecified, uncomplicated; I10 Essential (primary) hypertension
CPT/HCPCS: 27823; 27829; 80053; 94640; 97162; 97530; 71046; 73590; 73600; 73610; 83036; J0131; J0690; J1100; J1170; J1885; J2250; J2370; J2405; J2704

== ENCOUNTER 2022-11-06 13:50 | Inpatient (IN) | payer OTHER, SELFPAY ==
--- NOTE | 2022-11-06 12:33 | PDOC.CMPRO ---
- If Service Date Differs Date of service: 11/06/22 Time of Service: 12:33 Care Management Progress Note S/O: Henry will transition to SWB 1 today for continued PT to increase independence with mobility and transfers, considering his non weight bearing status for 6 weeks post surgically. He will work with PT over the weekend and will be reevaluated for discharge on Wednesday. If he continues to require rehab level of care, he will transition to a rehab facility. CM discussed this with Henry, who is in agreement with this plan, and feels confident that he will be ready for discharge home early next week. He reported that his friend is working on obtaining a wheelchair for him. He stated that he may require a commode, which CM will order through [employer], billing his worker's compensation. CM communicated with his worker's comp team, who stated that they do not require a PA. He may need assistance with transportation home, if family is unable to safely transport. CM will continue to follow. A: Henry is a 67 year old male admitted to [facility] on 11/03/22 with R shelby fracture, failure to thrive. P: Henry will transition to SWB 1 today for continued PT to increase independence with mobility and transfers. He will return home once he meets his goals with PT, likely early next week. His family will provide transport vs RCT w/c van, if indicated. He will follow up with his PCP and discharge plan of care. CM will continue to follow.
--- NOTE | 2022-11-06 12:33 | CM.SWINGPC ---
- If Service Date Differs Date of service: 11/06/22 Time of Service: 12:33 Swingbed Plan of Care Plan of care: SWING BED PROGRAM ACTIVITIES/DISCHARGE PLAN OF CARE ACTIVITIES PLAN Date: 11/06/22 Identified Need: Life enrichment while on SWB 1 for continued work with PT. Intervention/Plan: Cart items including puzzle books, adult coloring, etc. TV in room. Raiki/music therapy, if available. Initials KM DISCHARGE PLAN Date: 11/06/22 Identified Need: Improve independence with mobility and transfers, considering his 6 week non weight bearing status post surgical. Intervention/Plan: Work with PT daily to meet goals. Initials BRYCE
--- NOTE | 2022-11-06 12:36 | CMSA_ITS ---
- If Service Date Differs Date of service: 11/06/22 Time of Service: 12:36 SB Psychosocial/Act.Assessment - Hospital Admission Admission Date: 11/03/22 Admission From:: Home Diagnosis:: R ankle fracture - Swing Bed Admission Swing Bed Admit Date:: 11/06/22 Swing Bed Level of Care: Level 1/SNF - Social Supports PREVIOUS FUNCTIONAL STATUS/SOCIAL/FAMILY SUPPORTS:: Henry lives in [place], alone. He has two adult children. 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 He is independent at baseline. - Prior to Admission Living Arrangements/Environment Prior to Admission:: Henry lives at home alone. 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 This stay and any resulting charges will be billed to his worker's compensation. - Education Highest Grade Completed:: 12 Where did you attend School:: [employer] Special Education/Training:: [employer] - Work History Employment Status:: Current, cannon crewmember. Voacation:: Road Mooney, [employer] - : No [place]'s Spouse: No - Benefits Financial: Commerical - Christian Active Denominational Member:: Yes Denominational Affliation: Spiritism Will Denominational Members or Pharmacy Director Visit:: No Importance of Cathie:: He knows that his bahai is supportive, and will help them if needed, but he does not attend regularly. - Advance Directives for Healthcare Advance Directives for Healthcare: Advance Directives Advance Directive Agent: Génesis Flores. - Interests Hobbies:: bowling Sports:: Softball TV/Movies:: Local news, Gunsmoke Outdoor Activities:: Hunting/fishing - Present Functional Status Physical Abilities:: Limited due to non weight bearing status. Cognitive:: Intact Communication:: Clear Sensory Systems: Intact Behavior:: Calm, cooperative - Medical History PAST MEDICAL HISTORY/PAST SURGICAL HISTORY:: All Active Problems. Closed [place] fracture of right lower extremity (Acute 11/02/22). Abrasion of right leg (Acute). Former cigarette smoker (Chronic). ~80 pack/yr hx. Annual LDCT. COPD (chronic obstructive pulmonary disease) (Chronic). Osteoarthritis of left knee (Acute). Morbid obesity with BMI of 45.0-49.9, adult (Acute). Poor dentition (Chronic 06/25/17). Chronic pain of left knee (Chronic 06/25/17). Well adult (Chronic). check labs. wt loss encouraged. shingrix. colon screening encouraged. Alcohol use (Chronic). 3-4 beers / night. Hypertension (Chronic). Medical History. Gout attack. Hematuria, gross. Rosacea (06/06/14) - Admission Data Reason for Swing Bed Admission:: Continued work with PT to increase independence with mobility and transfers considering non weight bearing status p/s. Discharge Plan:: Henry will return home early next week after meeting goals and increased confidence with mobility and transfers. Assessment: Henry will temporarily live with his mother, whose home is handicap accessible, once he meets his PT goals. He will likely be driven home via private vehicle by family vs RCT, if indicated. His friend is obtaining a w/c for him. CM is ordering a heavy duty commode for his home. He will have new services upon discharge to assist with his transition home. RENETTA will continue to follow. Tube Carrier: Abbey Nicholas Date Assessment was completed:: 11/06/22
--- NOTE | 2022-11-06 13:54 | HPE_ITS ---
Date of service: 11/06/22 Time of Service: 13:54 Assessment and Plan Assessment and plan (1) Displaced trimalleolar fracture of right ankle: Status: Acute Assessment and plan: postop day #1 status post Right trimalleolar ankle fracture ORIF with syndesmotic fixation by orthopedics here Completed 24 hours postoperative antibiotics Pain control-Multimodal Physical therapy ordered: Protected weightbearing as best possible as tolerated with assist device- May require bariatric walker. Strict elevation right ankle while in bed or chair. Aspirin 325 mg twice daily for DVT prophylaxis starting 11/07/22 Padding under legs. Dressings applied to bilateral legs/calves due to wounds already developed. Change as needed. Reposition frequently. Follow-up with Dr. Holden outpatient [facility] in 10-14 days (2) COPD (chronic obstructive pulmonary disease): Status: Chronic Assessment and plan: stable continue home medication (3) Hypertension: Status: Chronic Assessment and plan: blood pressure stable, continue home medication. monitor and adjust as needed. (4) On deep vein thrombosis (DVT) prophylaxis: Status: Acute Assessment and plan: Aspirin 325 mg take 1 daily twice to prevent a blood clot for 2 weeks (5) Discharge planning issues: Status: Acute Assessment and plan: case management following. anticipate discharge to home when safe discussed with Dr Sánchez History of Present Illness History of Present Illness Chief Complaint: right ankle pain Review of Systems All systems reviewed & are unremarkable except as noted in HPI and below PFSH All Active Problems (Updated 11/06/22 @ 13:58 by Tabatha Borges NP) Discharge planning issues (Acute) On deep vein thrombosis (DVT) prophylaxis (Acute) Displaced trimalleolar fracture of right ankle (Acute 11/02/22) Abrasion of right leg (Acute) Former cigarette smoker (Chronic) ~80 pack/yr hx. Annual LDCT COPD (chronic obstructive pulmonary disease) (Chronic) Osteoarthritis of left knee (Acute) Morbid obesity with BMI of 45.0-49.9, adult (Acute) Poor dentition (Chronic 06/25/17) Chronic pain of left knee (Chronic 06/25/17) Well adult (Chronic) check labs wt loss encouraged shingrix colon screening encouraged Alcohol use (Chronic) 3-4 beers / night Hypertension (Chronic) Medical History (Updated 11/06/22 @ 13:58 by Tabatha Borges NP) Gout attack Hematuria, gross Rosacea (06/06/14) Family History Mother No problems noted. Father , age 80 Heart disease Sister No problems noted. Maternal Grandfather , age 85 Heart disease Paternal Grandfather , age 62 Heart disease Maternal Grandmother , 66 Heart disease Stroke Paternal Grandmother , 90 Cancer Sister No problems noted. Sister No problems noted. Brother No problems noted. Brother , 59 Colon cancer Son No problems noted. Son No problems noted. Social History Smoking/Tobacco Use Status: Former Tobacco Use tobacco type: cigarettes Quit Date: 11/29/09 Tobacco: How many years used: 30 Second Hand Exposure: Yes Smoking risk assessment performed?: Yes Alcohol Intake: current Alcohol Intake frequency: a few times a week Alcohol type: beer Drug use: Never Substance use type: does not use Caregiver/Support person: No Household members: children Housing: house Do you need help understanding health information?: Never Pets and animals: No Sexually active: No Do you think of yourself as: straight/heterosexual Current gender identity: male What is your relationship status?: How often do you talk on the phone with friends or family?: three or more times per week How often do you get together with friends or relatives?: three or more times per week How often do you attend sikh or lutheran services?: decline to answer Do you belong to any clubs or organized social groups?: no Panel score (0-1 are the most socially isolated patients): 1 What type of physical activity do you participate in: walking Duration: 60-90 minutes/day Frequency: daily Cathie/Caodaism: No preference Special cathie needs: No Seatbelt use: sometimes Helmet use: No Drive intox or ride w/intox bull driver: No Do you feel safe at home: Yes Do you feel safe in your relationship?: Yes Meds Allergies and Home Medications Allergies Allergy/AdvReac Type Severity Reaction Status Date / Time No Known Allergies Allergy Verified 10/30/22 14:16 Home Medications Medication Instructions Recorded Confirmed Type acetaminophen 500 mg tablet 1,000 mg PO Q6H PRN PRN Pain #100 10/05/16 11/06/22 Rx (Acetaminophen Extra Strength) tabs lisinopril 30 mg tablet 30 mg PO DAILY #90 tab-caps 06/15/22 11/06/22 Rx metoprolol succinate 25 mg 25 mg PO DAILY #30 tabs 08/12/22 11/06/22 Rx tablet,extended release 24 hr tiotropium bromide 2.5 2 inh inhalation QAM #4 grams 08/12/22 11/06/22 Rx mcg/actuation mist for inhalation (Spiriva Respimat) albuterol sulfate 90 mcg/actuation 2 inh inhalation Q6H PRN shortness 10/30/22 11/06/22 Rx aerosol inhaler of breath or wheezing #18 grams amlodipine 10 mg tablet 10 mg PO DAILY #90 tabs 10/30/22 11/06/22 Rx amoxicillin 875 mg-potassium 1 tab PO Q12H #14 tabs 10/30/22 11/06/22 Rx clavulanate 125 mg tablet azithromycin 250 mg tablet 250 mg PO DAILY 5 days #6 tabs 10/30/22 11/06/22 Rx prednisone 20 mg tablet 40 mg PO DAILY 5 days #10 tabs 10/30/22 11/06/22 Rx aspirin 325 mg tablet,delayed 325 mg PO BID Prevent blood clot 11/05/22 11/06/22 Rx release 14 days #28 tabs naproxen 250 mg tablet 250 - 500 mg PO BID PRN #40 tabs 11/05/22 11/06/22 Rx oxycodone 5 mg tablet 5 - 10 mg PO Q4H PRN moderate to 11/05/22 11/06/22 Rx severe pain #18 tabs Exam Const General: cooperative, no acute distress and ill appearing chronically Nutritional Appearance: obese [facility] Head: normal to inspection Mouth: oral mucosae normal Resp Effort & Inspection: normal respiratory effort Auscultation: diminished lung sounds bilaterally (bases no wheezing) Cardio Rate: regular rate Rhythm: regular rhythm GI Inspection: normal to inspection Extrem General: other (right lower extremity splint intact, csmt intact to toes)
--- NOTE | 2022-11-06 16:14 | NUR.NOTE ---
Nursing Note: Pt. was discharged from acute inpatient status and was admitted to swingbed inpatient status per MD order.
--- NOTE | 2022-11-06 16:21 | CHAPLAIN ---
Henry was up in the chair, with his ankle elevated when I visited. He told me about his surgery yesterday. He's not allowed to be weight bearing on his right leg at all. He said he'll be going home to his mom's house, which is handicapped accessible and that should make it easier for him to get around. I explained my role and offered support.
[2022-11-06] MEDS: Aspirin E.C. 325 MG TABEC PO (20:41)
[2022-11-06] MEDS: Acetaminophen 500 MG TAB 1000 MG PO (20:42)
[2022-11-07 05:06] VITALS: BP 137/79; PULSE 62; RESP 18; TEMP 36.5; O2SAT 93
[2022-11-07] MEDS: Acetaminophen 500 MG TAB 1000 MG PO (05:19)
[2022-11-07 07:47] VITALS: BP 132/74; PULSE 65
[2022-11-07] MEDS: Folic Acid 1 MG TAB PO (07:50)
[2022-11-07] MEDS: Lisinopril 10 MG TAB 30 MG PO (07:50)
[2022-11-07] MEDS: Metoprolol CR 25 MG TABCR PO (07:50)
[2022-11-07] MEDS: amLODIPine 10 MG TAB PO (07:50)
[2022-11-07] MEDS: Aspirin E.C. 325 MG TABEC PO ×2 (07:50→21:49)
[2022-11-07] MEDS: Thiamine 100 MG TAB PO (07:50)
[2022-11-07] MEDS: Multivitamin TAB 1 TAB PO (07:51)
[2022-11-07] MEDS: Tiotropium Bromide-Respimat 10 PUFF INH 2 PUFF IH (08:22)
--- NOTE | 2022-11-07 10:45 | IN_ITS ---
Date of service: 11/07/22 Time of Service: 10:16 PT Notes Visit Reasons: Right Ankle Fracture Physical Therapy Swing Bed Level 1 Evaluation Date: 11/06/2022 Referring Doctor:? Milo Diane MD PT Orders: PT CONSULT: Protected weight bearing as best as possible with ass istive device Precautions: Fall. Standard. Protected weight bearing on R LE. Patient Profile/Admitting Diagnosis:? Henry converts to swing bed level for continued rpost-op rehabilitation prior to discharge to home tentively on Wednesday. Henry is a 67-year-old male patient who presented to the ED on 11/02/2022 with diagnosis of displaced fracture of the mid shaft of the R fibula with distal tibial fracture with some talar displacement.? On 11/03/2022,? a posterior slab splint was placed for the patient at the ED after a closed reduction of the talar dislocation was made to stabilize the fracture while his Pneumonia cleared.? He is S/P ORIF of R displaced trimallleolar fracture with open treatment syndesmosis disruption on postoperative day 2. PMHX: All Active Problems?(Updated 11/02/22 @ 16:26 by Leon Sharif MD) Fracture of right tibia and fibula (Acute) Abrasion of right leg (Acute) Former cigarette smoker (Chronic) ~80 pack/yr hx. Annual LDCT COPD (chronic obstructive pulmonary disease) (Chronic) Osteoarthritis of left knee (Acute) Morbid obesity with BMI of 45.0-49.9, adult (Acute) Poor dentition (Chronic 06/25/17) Chronic pain of left knee (Chronic 06/25/17) Well adult (Chronic) check labs wt loss encouraged shingrix colon screening encouragedAlcohol use (Chronic) 3-4 beers / night Hypertension (Chronic) Medical History? Gout attack Hematuria, gross Rosacea (06/06/14) Social History/Home Situation: Son lives with patient in a private home with 5-6 steps to enter without rails.? He works for the [employer].? Equipment Owned/DME: Bilateral axillary crutches Subjective: Confidence level increasing but still with prevailing anxiety over going home. Agreeable to having home health PT and OT for continued rehab. Reports 3/10 pain in the R leg after ambulation activity that subsided with rest. Objective: General Observation: Seated on chair.? BRENDA wraps to R LE over fixed R LE.? High BMI.? IV access through R UE. Mental Status: Alert and oriented as to person, place, time, and purpose. Able to pay attention, focus, and respond appropriately. Pain: 3/10 Vital Signs: WNL as closely monitored by nursing staff ROM: Right Lower Extremity: Hip flexion WFL. Hip abduction WFL. Knee flexion WFL. Ankle dorsiflexion NT. Ankle plantarflexion NT. Left Lower Extremity: Hip flexion WFL. Hip abduction WFL. Knee flexion WFL. Ankle dorsiflexion WFL. Ankle plantarflexion WFL. Strength: Right Lower Extremity: R hip 4-/5.? R knee extensors 4-/5. R knee flexors NT. Left Lower Extremity: Hip flexors 5/5. Hip abductors 5/5. Knee flexors 5/5. Knee extensors 5/5. Ankle dorsiflexors 5/5. Ankle plantarflexors 5/5. Bed Mobility/Transfers: Sit to stand with stand by assist using bariatric FWW Stand to sit?with stand by assist using bariatric FWW Bed to reclining chair?with stand by assist using bariatric FWW Gait: 50 feet using bariatric FWW with TDWB to minimal weight bearing on the R LE with report of 3/10 pain in the side of the R leg that subsided with rest.? Step-to gait pattern sometimes but mostly TDWB as patient appears still anxious about putting R feet down.? THERA EX: Gluteal sets x 10 Quadrcieps sets x 10 Seated hip abdcution x 10 Heel slides x 10 Toe wiggles x 10 Balance: Static Sitting: Normal Dynamic Sitting: Normal Static Standing: Poor Dynamic Standing: Poor Special Tests: Mobility Limitations Standardized Measure [facility] 6 clicks Basic Mobility Inpatient Short Form: Raw Score: 20? CMS Score: 36% deficit? ? ? Informed Consent/Education:? Patient was instructed in purpose of PT consult and plan of care. Agreeable to proceed with established PT POC to achieve personal goals. Assessment: Patient will benefit best with HH PT/OT at home for training in the home environment.? He is able to cover about the same distance as he would at home using the bariatric FWW.? Alternatively,? he will have a wheelchair that he may use to negotiate the distance from reclining chair to the bathroom if pain becomes an issue at home.? Henry is a 67-year-old male patient who presented to the ED on 11/02/2022 with diagnosis of displaced fracture of the midshaft of the R fibula with distal tibial fracture with some talar displacement.? On 11/03/2022,? a posterior slab splint was placed for the patient at the ED after a closed reduction of the talar dislocation was made to stabilize the fracture while his Pneumonia cleared.? He is S/P ORIF of R displaced trimallleolar fracture with open treatment syndesmosis disruption on postoperative day 2. Training for pericare and undergarment management pre and post voiding have been done with patient. Patient presents with clinical signs and symptoms consistent with current/admitting diagnoses that have resulted to mobility limitations, gait instability, generalized weakness, and overall ADL decline as demonstrated by the following impairment level findings: 1.? Decreased strength to R leg and foot major muscle groups 2.? Impaired standing balance 3.? Impaired activity tolerance 4.? Limitation of joint range of motion in R LE Impairments are contributing to the following functional limitations: 1.? Decline in bed mobility skills 2.? Decline in transfer skills 3.? Increased completion time for mobility ADL performance Patient is assessed as a 59571 moderate complexity based on the following: History: 67-year-old female with past medical history as indicated above Examination: Demonstrable impairment in strength, balance, and mobility level with underlying impairments and functional limitations as exhibited above as well as deficit score of 72% utilizing the [facility] Mobility Inpatient Short Form Presentation: evolving Decision Makin complexity Goals: Goals X1 week 1. Sit-Stand from reclining chair independent using bariatric walker 2. Stand-Sit onto reclining chair independent using bariatric walker 3. Bed-Chair independent using bariatric walker 4. Chair-Bed independent using bariatric walker 5. Level service ambulation of 50 feet indepedent using bariatric walker Plan of Care/Treatment Plan: 1-2x/day, 7 days/week x 1 week. Plan of care has been reviewed with the HOT PRESS OPERATOR providing the service under Physical Therapy direction. Initiate Physical Therapy intervention for pain management as needed, strengthening, bed mobility, transfers, gait, stairs, balance training, and use of assistive device. DISCHARGE RECOMMENDATIONS: [] ? Home with no services [] [X] ? Home with services .? HOme when medically cleared by orthopedic surgeon.? Patient will benefit from home health PT services in order to progress mobility level using least restrictive assistive ambulatory device, assess home safety, identify additional equipment needs, and establish a functional maintenance program that will increase ability of patient to remain at home. [] ? Home with outpatient PT [] [] ? SNF for continued rehabilitation [] [] ? [facility] [] [] ? SNF versus LTC based on ability to participate and progress [] [X] Equipment needs: 1) regular wheelchair to negotiate hallway from reclining chair to bathroom if pain level increases 2) bedside commode to maximize toileting independence and reduce fall risk if pain level increases 3) shower chair to maximize independence with bathing tasks while reducing fall risk 4) bariatric walker to maixmize mobility independence and reduce fall risk TREATMENT CODE/TIME: 38966 x 20 minutes,? 41374 x 11 minutes beginning at 10:16 AM. Thank you for the opportunity to participate in the care of this patient. Leeann Hardy PT, DPT, CLT [facility] [place], [place]
[2022-11-07 15:22] VITALS: BP 122/74; PULSE 67; RESP 16; TEMP 37.1; O2SAT 94
[2022-11-07] MEDS: Naproxen 500 MG TAB PO (16:08)
[2022-11-07] MEDS: oxyCODONE 5 MG TAB PO (21:49)
[2022-11-08 05:13] VITALS: BP 124/81; PULSE 56; RESP 16; TEMP 36.3; O2SAT 96
[2022-11-08] MEDS: Tiotropium Bromide-Respimat 10 PUFF INH 2 PUFF IH (07:10)
[2022-11-08 07:47] VITALS: BP 120/72; PULSE 65; RESP 18; TEMP 36.6; O2SAT 92
[2022-11-08] MEDS: Lisinopril 10 MG TAB 30 MG PO (07:49)
[2022-11-08] MEDS: Folic Acid 1 MG TAB PO (07:49)
[2022-11-08] MEDS: Metoprolol CR 25 MG TABCR PO (07:49)
[2022-11-08] MEDS: amLODIPine 10 MG TAB PO (07:49)
[2022-11-08] MEDS: Thiamine 100 MG TAB PO (07:50)
[2022-11-08] MEDS: Aspirin E.C. 325 MG TABEC PO ×2 (07:50→20:25)
[2022-11-08] MEDS: Multivitamin TAB 1 TAB PO (07:50)
[2022-11-08] MEDS: hydrOXYzine HCL 25 MG TAB PO (07:54)
[2022-11-08] MEDS: Acetaminophen 500 MG TAB 1000 MG PO (09:41)
--- NOTE | 2022-11-08 10:22 | PT.INTREAT ---
PT Notes Visit Reasons: Right Ankle Fracture Inpatient Physical Therapy Treatment Note [facility] Date: 11/08/22 PRECAUTIONS: SUBJECTIVE: Pt reports that he did not sleep well last night so he is tired today. OBJECTIVE: [ Supine-sit: I Stand-sit: SBA/CGA GAIT Assistive Device: FWW Weight bearing: NWB Assist: CGA/SBA Distance: Bed to chair/Chair to door and back to chair THEREX: L heel slides x 10, L abd x 10, L ankle pumps x 10, LAQ x 10L R x 5, R toe wiggles x 10, Q.S. x 10 ASSESSMENT: Pt tolerated today's session well he was tired but motivated. PLAN: Cont as per PT POC. TREATMENT CODE/TIME: 9:55-10:20 (25) PAULETTE ANN
[2022-11-08] MEDS: Naproxen 500 MG TAB PO (17:37)
[2022-11-09 07:33] VITALS: BP 125/73; PULSE 66; RESP 19; TEMP 36.8; O2SAT 94
[2022-11-09] MEDS: Folic Acid 1 MG TAB PO (07:43)
[2022-11-09] MEDS: Multivitamin TAB 1 TAB PO (07:43)
[2022-11-09] MEDS: Thiamine 100 MG TAB PO (07:43)
[2022-11-09] MEDS: Aspirin E.C. 325 MG TABEC PO (07:43)
[2022-11-09] MEDS: Lisinopril 10 MG TAB 30 MG PO (07:43)
[2022-11-09] MEDS: Metoprolol CR 25 MG TABCR PO (07:44)
[2022-11-09] MEDS: amLODIPine 10 MG TAB PO (07:44)
[2022-11-09] MEDS: Tiotropium Bromide-Respimat 10 PUFF INH 2 PUFF IH (08:08)
--- NOTE | 2022-11-09 10:49 | PTTR_ITS ---
Date of service: 11/09/22 Time of Service: 08:40 PT Notes Visit Reasons: Right Ankle Fracture Inpatient Physical Therapy Treatment Note [facility] Date: 11/09/2022 PRECAUTIONS: Fall, activity as tolerated, NWB R LE SUBJECTIVE: Henry is pleasant and agreeable to participating in PT. He reports that she is feeling good today, other than having several bouts of diarrhea already this morning. He reports that he ordered a commode from [employer] and that someone will be picking that up for him. OBJECTIVE: PAIN: No c/o pain BED MOBILITY/TRANSFERS Sit-stand: I Stand-sit: I GAIT Assistive Device: FWW Weight bearing: NWB R LE Assist: S Distance: 40' Deviation: Appropriate maintenance of WB restrictions THEREX: Patient was instructed in a LE strengthening and stabilization program, completed in a long-sitting position, to include: toe mobility, quad sets, glute sets, heel slides, hip abduction and SLR. In p.m., patient was issued and instructed in a HEP for LE strengthening and stabilization. ASSESSMENT: Patient tolerated session well without complaint. He demonstrates improved stability and mobility with gait training at this time. PLAN: Patient to discharge to home later today, per provider. Recommend follow up with PT upon discharge. TREATMENT CODE/TIME: Session 1: 30 minutes; 23083, 33074 (08:40) Session 2: 10 minutes; 83464 (13:40)
--- NOTE | 2022-11-09 13:12 | DSE_ITS ---
Date of service: 11/09/22 Time of Service: 13:12 DS: Diagnosis Discharge Diagnosis (1) Displaced trimalleolar fracture of right ankle: Status: Acute (2) COPD (chronic obstructive pulmonary disease): Status: Chronic (3) Hypertension: Status: Chronic Discharge Plan Disposition Patient Disposition: Home W/Home Health Services Condition: Good Discharge Details Reason For Visit: Right Ankle Fracture Admit Date/Time: 11/06/22 13:50 Admit Provider: Dawit Sánchez Attending Provider: Dawit Sánchez Primary Care Provider: Les Carvajal Hospital Course Hospital Course: Henry is a 67-year-old male that presented to the [facility] emergency room, 11/02/2022, after his leg was pinned for approximately 30 seconds, between a log and ground host/hostess machine.? He was assisted by others to extricate his leg.? He noted he had to bear weight on the leg and it felt unstable.? Pain was moderate to severe, and worsened with any attempted movement of the ankle and with ambulation.? He had no associated numbness or tingling and no other injury. when a log rolled onto his right ankle causing severe pain.? He went to the emergency room where he was found to have a Maisonneuve fracture of the right ankle.? He was placed in a posterior slab splint and discharged home.? While at home, he was unable to get up from a chair or ambulate anywhere throughout his house without significant help.? He returned to the hospital and was admitted to orthopedics and underwent Right trimalleolar ankle fracture ORIF with syndesmotic fixation of his right ankle.?His recovery has been uneventful. He is being discharged home with Home Health PT/OT per recommendations of in- patient PT. He is stable. Home Meds and New Rx's Prescriptions: New folic acid 1 mg Tablet 1 mg PO QAM Qty: 30 0RF hydroxyzine HCl 25 mg Tablet 25 mg PO TID PRN PRNQty: 30 0RF thiamine mononitrate (vit B1) [Vitamin B-1 (mononitrate)] 100 mg Tablet 100 mg PO QAM Qty: 30 0RF L. Acidophilus,Casei,Rhamnosus [Bio-K Plus] 1 cap PO DAILY Qty: 30 0RF Continued Spiriva Respimat 2.5 mcg/actuation mist 2 inh inhalation QAM Qty: 4 2RF amlodipine 10 mg tablet 10 mg PO DAILY Qty: 90 3RF albuterol sulfate 90 mcg/actuation HFA aerosol inhaler 2 inh inhalation Q6H PRN (Reason: shortness of breath or wheezing) Qty: 18 4RF lisinopril 30 mg tablet 30 mg PO DAILY Qty: 90 3RF Rx Instructions: increased dose/ take one tablet daily acetaminophen [Acetaminophen Extra Strength] 500 MG tablet 1,000 mg PO Q6H PRN PRN (Reason: Pain) Qty: 100 0RF Rx Instructions: max 3 x day aspirin 325 mg tablet,delayed release (DR/EC) 325 mg PO BID 14 Days Qty: 28 0RF naproxen 250 mg tablet 250 - 500 mg PO BID PRNQty: 40 0RF Rx Instructions: take with a meal oxycodone 5 mg tablet 5 - 10 mg PO Q4H MDD 30 mg PRN (Reason: moderate to severe pain) Qty: 18 0RF No Action amoxicillin-pot clavulanate 875-125 mg tablet 1 tab PO Q12H Qty: 14 0RF Rx Instructions: Take 1 tablet twice a day for 7 days metoprolol succinate 25 mg tablet extended release 24 hr 25 mg PO DAILY Qty: 90 3RF Discharge Instructions Instructions: Acute Diarrhea (GEN), Abdominal Pain (ED), ORIF of an Ankle Fracture (DC) Additional Instructions: Activity: Protected weightbearing as best possible with assist device.? May rest splint on ground for stance or balance.? Strict elevation to minimize swelling and discomfort.? Wiggle toes to prevent stiffness and improve circulation.? Prescriptions: Aspirin 325 mg take 1 daily twice to prevent a blood clot for 2 weeks Naproxen 250 mg take 1-2 every 12 hours with a meal as needed for moderate pain Oxycodone 5 mg take 1-2 every 4-6 hours as needed for severe pain You may use [id number] Tylenol (acetaminophen) as needed for mild pain. These pain medications may be taken all at once or in different combinations as needed. Also, recommend Colace (docusate) as a stool softener as surgery and pain medicine cause constipation. You may try [id number] diphenhydramine (Benadryl) 25-50 mg nightly as a sleep aid. Dressings: Leave splint and dressing in place until follow-up.? Keep clean and dry at all times. Follow-up: 10-[address] Holden You may take off the leg compression stockings this evening at home.? You may also leave them on a few days longer if you have a history of leg swelling or edema. Let orthopedics know right away if you develop any redness, drainage, fevers, chest pain, or trouble breathing.? Please call their office during business hours with any questions or concerns. You can take Imodium for diarrhea. We will test your stool and call you with results and any further instruction. Stand Alone Forms: Nursing Discharge Form Referrals: Ward Holden MD [[facility] STAFF PHYSICIAN] - 11/17/22 3:00 pm (10-14 days ) Les Carvajal MD [Primary Care Provider] - 11/18/22 10:00 am (1-2 weeks) Activity:: as above Equipment/Supplies:: Walker Diet:: Low Sodium Discharge Orders Discharge Orders: Discharge Order (Routine); Ordered 11/09/22 Ordered By: Kacy House Discharge Data Discharge Date/Time-TO BE ENTERED AT DEPARTURE: 11/09/22 15:41 DS: Summary Time Spent with Patient providing and/or coordinating discharge services: Greater than 30 minutes Status at Discharge Functional status at discharge: uses cane/walker Overall status at discharge: patient is progressing back to baseline Mental Status: mental status grossly normal Speech and Movement: speech and movement normal Mood: congruent mood Affect: normal affect Exam Const General: cooperative, no acute distress and ill appearing chronically Nutritional Appearance: obese HENMT Head: normal to inspection Mouth: oral mucosae normal Resp Effort & Inspection: normal respiratory effort Auscultation: diminished lung sounds bilaterally (bases no wheezing) Cardio Rate: regular rate Rhythm: regular rhythm GI Inspection: normal to inspection Extrem General: other (right lower extremity splint intact, csmt intact to toes) Psych Mental Status: mental status grossly normal Speech and Movement: speech and movement normal Mood: congruent mood Affect: normal affect DS: Data Vitals/I&O Vitals and I&O: Vital Signs Temperature 36.8 C 11/09/22 07:33 Temperature Source Skin 11/09/22 07:33 Pulse 66 11/09/22 07:33 Pulse Rhythm Regular 11/09/22 07:10 Respiratory Rate 19 11/09/22 07:33 Respiratory Effort Non-Labored 11/09/22 07:10 Respiratory Depth Normal 11/09/22 07:10 Respiratory Pattern Normal 11/09/22 07:10 Blood Pressure 125/73 11/09/22 07:33 Pulse Oximetry 94 11/09/22 07:33 Oxygen Delivery Method Room Air 11/09/22 07:33 Oxygen Flow Rate 0 11/09/22 07:33 Pain Level 0 11/09/22 07:33 Comment 11/08/22 07:47 Intake & Output 11/08/22 11/09/22 11/09/22 23:59 11:59 23:59 Intake Total 360 / 1270 480 / 480 Output Total 500 / 900 1025 / 1200 175 / 1200 Balance -140 / 370 -545 / -720 -175 / -720 Intake: Oral 360 / 1270 480 / 480 Output: Urine 500 / 900 1025 / 1200 175 / 1200 Other: Urine Color Yellow Straw Straw Urine Appearance Clear Clear Clear Urine Odor Normal None Comment Per pt. report, multiple voids in the toilet throughout the day thus far. Stool Size Copious Stool Characteristics Soft Voiding Methods Urinal Urinal Urinal PFSH All Active Problems (Updated 11/10/22 @ 00:05 by KENTRELL KO) Displaced trimalleolar fracture of right ankle (Acute 11/02/22) Abrasion of right leg (Acute) Former cigarette smoker (Chronic) ~80 pack/yr hx. Annual LDCT COPD (chronic obstructive pulmonary disease) (Chronic) Osteoarthritis of left knee (Acute) Morbid obesity with BMI of 45.0-49.9, adult (Acute) Poor dentition (Chronic 06/25/17) Chronic pain of left knee (Chronic 06/25/17) Well adult (Chronic) check labs wt loss encouraged shingrix colon screening encouraged Alcohol use (Chronic) 3-4 beers / night Hypertension (Chronic) Medical History (Updated 11/10/22 @ 00:05 by KENTRELL KO) Gout attack Hematuria, gross Rosacea (06/06/14) Family History Mother No problems noted. Father , age 80 Heart disease Sister No problems noted. Maternal Grandfather , age 85 Heart disease Paternal Grandfather , age 62 Heart disease Maternal Grandmother , 66 Heart disease Stroke Paternal Grandmother , 90 Cancer Sister No problems noted. Sister No problems noted. Brother No problems noted. Brother , 59 Colon cancer Son No problems noted. Son No problems noted. Social History Smoking/Tobacco Use Status: Former Tobacco Use tobacco type: cigarettes Quit Date: 11/29/09 Tobacco: How many years used: 30 Second Hand Exposure: Yes Smoking risk assessment performed?: Yes Alcohol Intake: current Alcohol Intake frequency: a few times a week Alcohol type: beer Drug use: Never Substance use type: does not use Caregiver/Support person: No Household members: children Housing: house Do you need help understanding health information?: Never Pets and animals: No Sexually active: No Do you think of yourself as: straight/heterosexual Current gender identity: male What is your relationship status?: How often do you talk on the phone with friends or family?: three or more times per week How often do you get together with friends or relatives?: three or more times per week How often do you attend worship or islam services?: decline to answer Do you belong to any clubs or organized social groups?: no Panel score (0-1 are the most socially isolated patients): 1 What type of physical activity do you participate in: walking Duration: 60-90 minutes/day Frequency: daily Cathie/Baptist: No preference Special cathie needs: No Seatbelt use: sometimes Helmet use: No Drive intox or ride w/intox refuse driver: No Do you feel safe at home: Yes Do you feel safe in your relationship?: Yes
--- NOTE | 2022-11-09 13:51 | PDOC.HHF2F ---
Home Health Referral Home Health Orders Clinical synopsis of why skilled professionals are needed: Henry is a 67-year-old male that presented to the [facility] emergency room, 11/02/2022, after his leg was pinned for approximately 30 seconds, between a log and aircraft lay out worker machine.? He was assisted by others to extricate his leg.? He noted he had to bear weight on the leg and it felt unstable.? Pain was moderate to severe, and worsened with any attempted movement of the ankle and with ambulation.? He had no associated numbness or tingling and no other injury. when a log rolled onto his right ankle causing severe pain.? He went to the emergency room where he was found to have a Maisonneuve fracture of the right ankle.? He was placed in a posterior slab splint and discharged home.? While at home, he was unable to get up from a chair or ambulate anywhere throughout his house without significant help.? He returned to the hospital and was admitted to orthopedics and underwent Right trimalleolar ankle fracture ORIF with syndesmotic fixation of his right ankle.?His recovery has been uneventful. He is being discharged home with Home Health PT/OT per recommendations of in-patient PT. He is stable. Medical diagnosis necessitation home health referral: Right trimalleolar ankle fracture s/p ORIF Physical Therapist: Check all that apply Increase strength & endurance for safe mobility at home: Ordered To design/establish home maintenance program: Ordered Fall reduction therapy program for patient with history of frequent falls: Ordered Home safety evaluation and teaching/gait training including stair management (if applicable): Ordered Occupational Therapist: Evaluate and treat for patient unable to perform ADL/IADL/self-care: Ordered Certified Master Locksmith: Assist with community resources: Ordered Assist with prison care planning: Ordered Home Bound Status Requires the aid of supportive device (check all that apply): Wheelchair and Walker Use of Special Transportation (Describe transportation and medical necessity): Unable to drive secondary to injury Describe why leaving home would require a considerable and taxing effort: Requires frequent rest periods and Safety Concerns: describe (unable to bear weight, fall risk. ) Encounter Date and Reason: I certify that a FTF encounter for this patient was performed on November 09, 2022 and that such encounter was related to the primary reason the patient requires home health services. The encounter was conducted in the following manner: By me as the certifying physician, OPERATING ROOM TECHNOLOGIST, PA or By an inpatient physician, OPERATING ROOM TECHNOLOGIST or PA during an inpatient stay who communicated findings to me, Certification And Authentication I certify that I composed the above information based on my clinical judgment relating to this patient's medical condition and, if applicable, clinical findings communicated to me by the NPP or inpatient physician who performed the FTF encounter. Name of Provider that will be monitoring home health services: Les Carvajal
--- NOTE | 2022-11-09 14:27 | PDOC.CMDIS ---
- If Service Date Differs Date of service: 11/09/22 Time of Service: 14:27 LACE Index Scoring Tool - Questions: Length of Stay (in days): 4 - 6 Acuity (Admit via E.D.?): Yes Comorbidities: Chronic Pulmonary Disease E.D. Visits: 2 - Answers: Total Score: 11 Risk of Readmission: High Risk Care Management Discharge Reason for Hospitalization: Right Ankle Fracture Discharge Plan: Henry returned to his mother's home today, where he will stay while he is non weight bearing, at MD direction. He will have new HH PT/OT to assist with mobility at home. RENETTA sent orders to [employer] for assistive equipement recommended by PT, such as a wheelchair, a heavy duty commode, and a shower chair. He will receive a bariatric FWW and crutches from [facility] prior to discharge. His sister and son will drive him home via private vehicle, and his coworkers are meeting him at home to help him into the home. He will follow up with Ortho, his PCP, and his discharge plan of care. He is happy with his plan, and he is happy to be going home. Patient/Family Education Needs: Review discharge instructions and limitations, discussion of self care needs including ask me three. Services Needed at Discharge: DME Agency ([employer], [facility]), Home Health Care Services (HH PT/OT)
[2022-11-09 20:24] LABS: C Diff PCR Negative (Negative)
== END 2022-11-09 15:41 | disposition home health service (06) | DRG 560 ==
PROVIDERS: Nurse Practitioner Family; Admitting Provider Internal Medicine; PCP Family Medicine; Visit Provider Internal Medicine
DX: S82.851D Displaced trimalleolar fracture of right lower leg, subsequent encounter for closed fracture with routine healing (principal); Z68.42 Body mass index [BMI] 45.0-49.9, adult; J44.9 Chronic obstructive pulmonary disease, unspecified; I10 Essential (primary) hypertension; E66.01 Morbid (severe) obesity due to excess calories; M17.12 Unilateral primary osteoarthritis, left knee; F10.90 Alcohol use, unspecified, uncomplicated; Z87.891 Personal history of nicotine dependence
CPT/HCPCS: 87493; 94640; 97110; 97162; 97530; 99306; 99315

== ENCOUNTER 2022-11-17 16:11 | Outpatient (CLI) | payer OTHER, SELFPAY ==
--- NOTE | 2022-11-17 15:30 | DI.RAD_ITS ---
Exam(s) XR ANKLE RT COMPLETE EXAM: XR ANKLE RT COMPLETE CLINICAL HISTORY: ORIF right ankle. TECHNIQUE: 2D digital imaging was performed. COMPARISON: CR XR TIB/FIB RT from 11/03/2022 CR XR ANKLE RT COMPLETE from 11/05/2022 FINDINGS: 3 views There has been interval ORIF of the right ankle. Three parallel screws in the distal tibia fibula an d a single AP orientated screw across the posterior malleolus fracture site with satisfactory alignme nt. Also a single screw across the medial malleolus fracture site with satisfactory alignment. No w idening of the ankle mortise. Talar dome unremarkable. No evidence of hardware loosening. No radio graphic evidence of osteomyelitis. Comminuted midshaft fracture in the fibula is again noted. Inferior calcaneal spur again noted. IMPRESSION: As above. DATA REPOSITORY: RADIATION DOSE DELIVERED:
== END 2022-11-17 16:12 | disposition home or self-care (01) ==
LOC: DIORS 16:12
PROVIDERS: PCP Family Medicine; Referring Provider Family Medicine; Visit Provider Physician Assistant
DX: S82.851D Displaced trimalleolar fracture of right lower leg, subsequent encounter for closed fracture with routine healing (principal); X58.XXXD Exposure to other specified factors, subsequent encounter
CPT/HCPCS: 73610

== ENCOUNTER 2022-12-22 10:19 | Outpatient (CLI) | payer OTHER, SELFPAY ==
--- NOTE | 2022-12-22 09:45 | DI.RAD_ITS ---
Exam(s) XR ANKLE RT COMPLETE EXAM: XR ANKLE RT COMPLETE CLINICAL HISTORY: right ankle f/u. TECHNIQUE: 2D digital imaging was performed. COMPARISON: CR XR ANKLE RT COMPLETE from 11/17/2022 FINDINGS: Four views: Total 5 screws again noted in the distal fibula and tibia. There are 3 parallel horizontally orienta meera syndesmotic screws through both bones. There is a screw through the medial malleolus fracture si te. At this level fracture line is still barely visible but appears satisfactory with respect to pos ition. There is also an additional AP orientated screw across and posterior malleolus fracture. There is no obvious degenerative changes in the tibiotalar joint and the talar dome appears unremarka ble. Os trigonum noted. Inferior calcaneal spur again noted. Anterior process of the calcaneus madhavi ears intact. Again noted is a midshaft fracture site in the fibula partially included in the field of view here. IMPRESSION: Ankle level hardware as described above with findings appearing stable. No evidence of screw looseni ng nor radiographic evidence of osteomyelitis. DATA REPOSITORY: RADIATION DOSE DELIVERED:
== END 2022-12-22 10:20 | disposition home or self-care (01) ==
LOC: DIORS 10:20
PROVIDERS: PCP Family Medicine; Referring Provider Family Medicine; Visit Provider Student in an Organized Health Care Education/Training Program
DX: S82.851D Displaced trimalleolar fracture of right lower leg, subsequent encounter for closed fracture with routine healing (principal); X58.XXXD Exposure to other specified factors, subsequent encounter
CPT/HCPCS: 73610

== ENCOUNTER 2023-01-19 11:22 | Outpatient (CLI) | payer OTHER, SELFPAY ==
--- NOTE | 2023-01-19 10:00 | DI.RAD_ITS ---
Exam(s) XR ANKLE RT COMPLETE XR TIB/FIB RT EXAM: XR ANKLE RT COMPLETE and XR tib/fib RT CLINICAL HISTORY: right ankle f/u. TECHNIQUE: 2D digital imaging was performed of the right ankle. Five images were obtained. AP, lat eral and oblique views were obtained. COMPARISON: CR XR TIB/FIB RT from 11/03/2022 CR XR ANKLE RT COMPLETE from 12/22/2022 FINDINGS: BONES: There are stable post operative changes present. The fracture line through the medial malleol us is still partially visualized. No new fracture or dislocation. There is a small plantar calcaneal spur and posterior calcaneal enthesophyte. There is no change in alignment of the mid fibular fract ure. Callus formation has developed about the fracture consistent with some interval healing. JOINTS: The joint spaces are well maintained. SOFT TISSUE: Soft tissue swelling of the leg and ankle is noted. IMPRESSION: 1. Stable postoperative changes. 2. Healing right mid fibular fracture. DATA REPOSITORY: RADIATION DOSE DELIVERED:
== END 2023-01-19 11:23 | disposition home or self-care (01) ==
LOC: DIORS 11:23
PROVIDERS: PCP Family Medicine; Referring Provider Family Medicine; Visit Provider Student in an Organized Health Care Education/Training Program
DX: S82.851D Displaced trimalleolar fracture of right lower leg, subsequent encounter for closed fracture with routine healing (principal); X58.XXXD Exposure to other specified factors, subsequent encounter
CPT/HCPCS: 73590; 73610

== ENCOUNTER 2023-01-29 02:20 | Outpatient (CLI) | payer BC, SELFPAY ==
[2023-01-29] MEDS: Albuterol HFA 18 GM 200 PUFF INH IH (13:54)
[2023-01-29] MEDS: Inhaler, Assist Device 1 EACH MC (13:55)
--- NOTE | 2023-02-01 12:57 | W.PFT ---
Date of service: 01/29/23 Time of Service: 13:08 Pulmonary Function Test Result Requesting Provider Sabine Crystal Indications: COPD Interpretation Spirometry: There is no airflow limitation. There is no significant bronchodilator response. Lung Volumes: There is air trapping. Diffusion Capacity: Normal diffusion. Airway Pressure: Normal airways resistance Impression No airflow obstruction. There is air trapping which could represent asthma in the correct clinical context. Clinical Correlation therefore is recommended.
== END 2023-01-29 02:21 | disposition home or self-care (01) ==
LOC: RT 02:21
PROVIDERS: PCP Family Medicine; Visit Provider Nurse Practitioner Family
DX: J44.9 Chronic obstructive pulmonary disease, unspecified (principal)
CPT/HCPCS: 94060; 94726; 94729

== ENCOUNTER 2023-03-10 10:05 | Outpatient (CLI) | payer OTHER, SELFPAY ==
--- NOTE | 2023-03-10 09:30 | DI.RAD_ITS ---
Exam(s) XR TIB/FIB RT EXAM: XR TIB/FIB RT CLINICAL HISTORY: fx f/u. TECHNIQUE: 2D digital imaging was performed. COMPARISON: CR XR TIB/FIB RT from 01/19/2023 FINDINGS: Two views: Again noted is the comminuted but healing midshaft fibular fracture. Multiple screws at the level of the ankle are again noted including medial malleolus and posterior malleolus and 3 horizontal screws across the syndesmotic region. It is noted that the middle of the 3 parallel horizontal screws is n ow noted to be discontinuous-fractured at its mid aspect, this within the tibial metaphysis. There i s, however, no screw migration. No radiographic evidence of osteomyelitis. IMPRESSION: Findings as above. DATA REPOSITORY: RADIATION DOSE DELIVERED:
--- NOTE | 2023-03-10 09:30 | DI.RAD_ITS ---
Exam(s) XR ANKLE RT COMPLETE EXAM: XR ANKLE RT COMPLETE CLINICAL HISTORY: right ankle f/u. TECHNIQUE: 2D digital imaging was performed. COMPARISON: CR XR ANKLE RT COMPLETE from 01/19/2023 FINDINGS: 3 views A total 5 screws are again noted in the region of the right ankle. Medial malleolus screw is stable and there is stable alignment of the medial malleolus healing fracture fragments. An AP orientated screw is again noted which remains in satisfactory position across a posterior malle olus fracture site. With respect to the 3 horizontal parallel screws in the distal tibia and fibula, the middle of these screws now is discontinuous at its central aspect. There is no screw migration. However, the upperm ost screw reveal some lucency around the screw in the fibular component, more so than previous. There is no widening of the ankle mortise. Talar dome appears satisfactory. Small corticated osteophytic density again noted dorsal to the distal talus. Moderate size inferior calcaneal spur again noted. IMPRESSION: New findings as above. DATA REPOSITORY: RADIATION DOSE DELIVERED:
== END 2023-03-10 10:06 | disposition home or self-care (01) ==
LOC: DIORS 10:05
PROVIDERS: PCP Family Medicine; Referring Provider Family Medicine; Visit Provider Student in an Organized Health Care Education/Training Program
DX: S82.851D Displaced trimalleolar fracture of right lower leg, subsequent encounter for closed fracture with routine healing (principal); X58.XXXD Exposure to other specified factors, subsequent encounter
CPT/HCPCS: 73590; 73610

== ENCOUNTER 2023-04-28 10:14 | Outpatient (CLI) | payer OTHER, SELFPAY ==
--- NOTE | 2023-04-28 10:00 | DI.RAD_ITS ---
Exam(s) XR ANKLE RT COMPLETE EXAM: XR ANKLE RT COMPLETE CLINICAL HISTORY: RIGHT ANKLE F/U. TECHNIQUE: 2D digital imaging was performed. Three views. COMPARISON: CR XR ANKLE RT COMPLETE from 12/22/2022 CR XR ANKLE RT COMPLETE from 03/10/2023 CR XR TIB/FIB RT from 03/10/2023 FINDINGS: BONES: There has been no change in the alignment of the fracture of the distal fibula. There is aga in noted to be lucency around the uppermost horizontal screw with some surrounding periosteal reactio n. A fracture is again noted in the middle screw. The more inferior screws are unchanged. The med ial malleolar fracture shows significant healing. JOINTS: The ankle mortise is normally aligned. SOFT TISSUE: Significant diffuse lower extremity edema remains present. IMPRESSION: Stable appearance of orthopedic hardware. Continued healing of the distal fibular fracture. DATA REPOSITORY: RADIATION DOSE DELIVERED:
== END 2023-04-28 10:15 | disposition home or self-care (01) ==
LOC: DIORS 10:15
PROVIDERS: PCP Family Medicine; Visit Provider Student in an Organized Health Care Education/Training Program
DX: S82.851D Displaced trimalleolar fracture of right lower leg, subsequent encounter for closed fracture with routine healing (principal); Z98.890 Other specified postprocedural states; X58.XXXD Exposure to other specified factors, subsequent encounter
CPT/HCPCS: 73610

== ENCOUNTER 2024-08-31 10:45 | Outpatient (CLI) | payer MEDICARE, SELFPAY ==
[2024-08-31 13:03] LABS: CREATININE 1.2 mg/dL (0.70-1.30); Calculated LDL 128 mg/dL (<100); Cholesterol 209 mg/dL (<200); Estimated GFR 65.87 (mL/min/1.73m2); HDL Cholesterol 63 mg/dL (40-60); Potassium 4.1 mmol/L (3.5-5.1); Triglyceride 94 mg/dL (<150)
== END 2024-08-31 10:46 | disposition home or self-care (01) ==
LOC: LOS 10:48
PROVIDERS: PCP Family Medicine; Referring Provider Family Medicine; Visit Provider Family Medicine
DX: I10 Essential (primary) hypertension (principal); E78.5 Hyperlipidemia, unspecified; Z23 Encounter for immunization; E11.9 Type 2 diabetes mellitus without complications
CPT/HCPCS: 36415; 80061; 82565; 84132

== ENCOUNTER 2025-04-25 02:23 | Outpatient (CLI) | payer MEDICARE, SELFPAY ==
[2025-04-25 12:58] LABS: ALT 24 U/L (16-63); AST 16 U/L (15-37); Albumin 3.5 g/dL (3.4-5.0); Alkaline Phosphatase 94 U/L (46-116); Anion Gap 8.8 mmol/L (3-11); BUN 12 mg/dL (7-18); Bilirubin, Direct 0.2 mg/dL (0.0-0.2); Bilirubin, Total 0.6 mg/dL (0.2-1.0); CO2 29.2 mmol/L (21.0-32.0); CREATININE 1.1 mg/dL (0.70-1.30); Chloride 102 mmol/L (98-107); Estimated GFR 72.67 (mL/min/1.73m2); Glucose 118 mg/dL (74-106); Potassium 4.3 mmol/L (3.5-5.1); Sodium 140 mmol/L (136-145); Total Protein 7.8 g/dL (6.4-8.2)
== END 2025-04-25 02:24 | disposition home or self-care (01) ==
PROVIDERS: PCP Family Medicine; Visit Provider Family Medicine
DX: G72.89 Other specified myopathies (principal); E87.1 Hypo-osmolality and hyponatremia
CPT/HCPCS: 36415; 80048; 80076